=== PATIENT | male | born 1970 | race Caucasian/White ===

== ENCOUNTER 2025-08-27 08:16 | Inpatient (IN) ==
[~2025-08-27 08:16] MED LIST: ETOMIDATE 2 MG/ML 20 ML VIAL IV ONE; MIDAZOLAM HCL 5 MG/ML 2ML VIAL IV ONE; ROCURONIUM BROMIDE 10 MG/ML 5 ML VIAL IV ONE
--- NOTE | 2025-08-27 08:46 | Emergency Department Note ---
Impression & Plan Acetaminophen overdose, Unresponsive episode, Acidosis ED Provider Note HISTORY OF PRESENT ILLNESS: Patient is a 55-year-old male presenting after an overdose. Patient presents from [facility]. Patient reportedly had nausea and vomiting throughout the night last night per report from EMS. Patient reportedly did not show up for rounds this morning and he was found laying in his bed unresponsive at 07:15. He was given 2 rounds of Narcan per report, but they did not know how much Narcan or the route of administration. He started to become agitated after Narcan dosing. Guards report it is unclear what the patient could have overdosed on, but do state that K2, Suboxone and alcohol are currently "going around the intermediate." On arrival to the ER, patient does not participate in examination. Guard presents to bedside to supply more history after initial history taking. Reports that the patient received a total of 2 mg of intranasal Narcan at the intermediate before EMS arrived. ROS: as above PHYSICAL EXAM: Constitutional: Patient appears in no acute distress. HENT: Head: Normocephalic and atraumatic. Eyes: Pinpoint pupils, but reactive. Mouth/Throat: Mucous membranes moist. Neck: Trachea midline. Neck supple. Cardiovascular: RRR, No murmurs, rubs or gallops. Intact distal pulses. Pulmonary/Chest: No respiratory distress. Breath sounds clear and equal bilaterally. No wheezes or rales. Abdominal: Abdomen soft, no tenderness, rebound or guarding. Musculoskeletal: No edema, tenderness or deformity noted. Skin: Warm and dry. No rash, erythema, pallor or cyanosis Neurological: Patient is laying in bed not following any commands. Minimal response to painful jaw thrust stimuli. MDM: - Vitals signs showed tachycardia - History obtained via EMS, given patient's altered mental status. History as above. - Chronic conditions affecting care: unknown - Differential diagnoses include, but are not limited to: Alcohol intoxication; drug intoxication; acetaminophen toxicity; salicylate toxicity; intracranial hemorrhage; CVA; dysrhythmia - Order placed for continuous cardiac monitoring. At this time, monitor showed rate of 92 bpm with normal sinus rhythm, per my interpretation. - External medical records reviewed. - EKG image interpreted by myself showed normal sinus rhythm. Rate 95 bpm. QT 366. No acute ischemic changes. - Laboratory workup interpreted by myself showed normal WBC; normal PT/INR; stable electrolytes; low bicarb (16); elevated anion gap (19); normal CK; normal troponin; normal AST/ALT; negative salicylate; negative alcohol; elevated acetaminophen level (443) - CXR image reviewed interpreted by myself as any for pneumonia, per my interpretation. - VBG shows acidosis with a pH of 7.25 - NAC therapy ordered - CT head wo contrast negative for acute intracranial pathology. Noted to have a posterior scalp contusion. - Patient started vomiting in ER and was given 4 mg IV zofran. - Given 0.2 mg IV narcan on arrival and started to moan at nursing staff. On reassessment at 09:35, patient is having sonorous respirations and still has pinpoint pupils. An additional 0.4 mg of IV Narcan was ordered. - Given elevated tylenol level and normal AST/ALT - likely an acute tylenol overdose. NAC ordered. - I called the [facility] at 9:57 AM. They report that given patient's Tylenol level of greater than 300 ug/mL, he should be given fomepizole per their protocol. Report that the patient did receive 15 mg/kg now and then 10 mg/kg every 12 hours for a total of 4 doses of fomepizole. They reports that they agree with patient receiving N-acetylcysteine therapies. Report that the patient should have LFTs and PT/INR checked 12 hours into his NAC therapy. Reports that otherwise just do symptomatic care and states that benzos can be used if patient comes agitated or tachycardic. - Fomepazole 15 mg/kg ordered. - Discussed case with ICU medical bill processor, Dr. Montes De Oca, at 10:41. She reports she will be by to see patient. - Discussion was had with therapeutic case manager about patient's case and need for admission - Hospitalist consulted for admission - Patient admitted to [facility] service for further evaluation and management. I have personally spent 76 minutes of critical care time in the direct management of this patient. This includes bedside care, interpretation of diagnostic studies, and testing, discussion with consultants, patient, and family members, and other required patient management activities. This 76 minutes is in excess of all separately billable procedures. ASSESSMENT AND PLAN: Diagnosis: Unresponsive episode; acute acetaminophen overdose; acidosis Plan: Admit Past Med/Surg History Problem List (Updated 08/27/25 @ 11:16 by Kathleen Grullon MD) Acidosis (Acute) Unresponsive episode (Acute) Acetaminophen overdose (Acute) Social History Smoking Status: Unknown if ever smoked Preferred Language: Persian Feels Safe at Home: Yes Allergies Allergies Allergy/AdvReac Type Severity Reaction Status Date / Time Sulfa (Sulfonamide Allergy Unknown Verified 08/27/25 10:59 Antibiotics) Home Meds Home Medications Medication Instructions Recorded Confirmed albuterol sulfate 90 mcg/actuation 1 inh inhalation TID PRN Shortness 08/27/25 08/27/25 aerosol inhaler Of Breath Results & Data (ED) Vital Signs Vital Signs - 24 hr 08/27/25 08:23 08/27/25 08:23 08/27/25 08:23 Temperature Temperature Source Pulse Rate Pulse Rate from SpO2 Sensor Respiratory Rate Blood Pressure 104/80 104/80 104/80 Blood Pressure Mean 81 81 81 Pulse Oximetry Oxygen Delivery Method Sepsis Recent Fever Within 48 Hours Sepsis New/Unexplained Change in Mental Status Sepsis Action Taken by Nursing 08/27/25 08:26 08/27/25 08:28 08/27/25 08:32 Temperature Temperature Source Pulse Rate 92 H 91 H 94 H Pulse Rate from SpO2 Sensor Respiratory Rate 20 23 Blood Pressure Blood Pressure Mean Pulse Oximetry 93 97 Oxygen Delivery Method Sepsis Recent Fever Within 48 Hours Sepsis New/Unexplained Change in Mental Status Sepsis Action Taken by Nursing 08/27/25 08:33 08/27/25 08:33 08/27/25 08:33 Temperature 36.6 C Temperature Source Temporal Artery Scan Pulse Rate 103 H Pulse Rate from SpO2 Sensor Respiratory Rate 17 Blood Pressure 123/76 116/69 116/69 Blood Pressure Mean 91 90 90 Pulse Oximetry 97 Oxygen Delivery Method Room Air Sepsis Recent Fever Within 48 Hours No Sepsis New/Unexplained Change in Mental Status N/A Sepsis Action Taken by Nursing No Action Required 08/27/25 08:33 08/27/25 08:33 08/27/25 08:33 Temperature Temperature Source Pulse Rate Pulse Rate from SpO2 Sensor Respiratory Rate Blood Pressure 116/69 116/69 116/69 Blood Pressure Mean 90 90 90 Pulse Oximetry Oxygen Delivery Method Sepsis Recent Fever Within 48 Hours Sepsis New/Unexplained Change in Mental Status Sepsis Action Taken by Nursing 08/27/25 08:41 08/27/25 08:44 08/27/25 08:45 Temperature Temperature Source Pulse Rate 85 105 H Pulse Rate from SpO2 Sensor Respiratory Rate 22 22 Blood Pressure 123/74 Blood Pressure Mean 95 Pulse Oximetry 95 98 Oxygen Delivery Method Sepsis Recent Fever Within 48 Hours Sepsis New/Unexplained Change in Mental Status Sepsis Action Taken by Nursing 08/27/25 08:45 08/27/25 08:45 08/27/25 08:45 Temperature Temperature Source Pulse Rate Pulse Rate from SpO2 Sensor Respiratory Rate Blood Pressure 123/74 123/74 123/74 Blood Pressure Mean 95 95 95 Pulse Oximetry Oxygen Delivery Method Sepsis Recent Fever Within 48 Hours Sepsis New/Unexplained Change in Mental Status Sepsis Action Taken by Nursing 08/27/25 08:45 08/27/25 08:50 08/27/25 08:52 Temperature Temperature Source Pulse Rate 90 Pulse Rate from SpO2 Sensor Respiratory Rate 19 Blood Pressure 123/74 Blood Pressure Mean 95 Pulse Oximetry 98 98 Oxygen Delivery Method Room Air Sepsis Recent Fever Within 48 Hours Sepsis New/Unexplained Change in Mental Status Sepsis Action Taken by Nursing 08/27/25 08:59 08/27/25 09:00 08/27/25 09:00 Temperature Temperature Source Pulse Rate 99 H Pulse Rate from SpO2 Sensor Respiratory Rate 20 Blood Pressure 129/81 129/81 Blood Pressure Mean 93 93 Pulse Oximetry 97 Oxygen Delivery Method Sepsis Recent Fever Within 48 Hours Sepsis New/Unexplained Change in Mental Status Sepsis Action Taken by Nursing 08/27/25 09:00 08/27/25 09:00 08/27/25 09:00 Temperature Temperature Source Pulse Rate Pulse Rate from SpO2 Sensor Respiratory Rate Blood Pressure 129/81 129/81 129/81 Blood Pressure Mean 93 93 93 Pulse Oximetry Oxygen Delivery Method Sepsis Recent Fever Within 48 Hours Sepsis New/Unexplained Change in Mental Status Sepsis Action Taken by Nursing 08/27/25 09:02 08/27/25 09:11 08/27/25 09:25 Temperature Temperature Source Pulse Rate 91 H 103 H Pulse Rate from SpO2 Sensor Respiratory Rate 21 16 Blood Pressure 125/72 Blood Pressure Mean 96 Pulse Oximetry 96 97 Oxygen Delivery Method Sepsis Recent Fever Within 48 Hours Sepsis New/Unexplained Change in Mental Status Sepsis Action Taken by Nursing 08/27/25 09:25 08/27/25 09:25 08/27/25 09:25 Temperature Temperature Source Pulse Rate Pulse Rate from SpO2 Sensor Respiratory Rate Blood Pressure 125/72 125/72 125/72 Blood Pressure Mean 96 96 96 Pulse Oximetry Oxygen Delivery Method Sepsis Recent Fever Within 48 Hours Sepsis New/Unexplained Change in Mental Status Sepsis Action Taken by Nursing 08/27/25 09:25 08/27/25 09:26 08/27/25 09:28 Temperature Temperature Source Pulse Rate 96 H Pulse Rate from SpO2 Sensor Respiratory Rate 23 Blood Pressure 125/72 Blood Pressure Mean 96 Pulse Oximetry 97 98 Oxygen Delivery Method Room Air Sepsis Recent Fever Within 48 Hours Sepsis New/Unexplained Change in Mental Status Sepsis Action Taken by Nursing 08/27/25 09:29 08/27/25 09:31 08/27/25 09:31 Temperature Temperature Source Pulse Rate 97 H Pulse Rate from SpO2 Sensor Respiratory Rate 21 Blood Pressure 113/70 113/70 Blood Pressure Mean 80 80 Pulse Oximetry 98 Oxygen Delivery Method Sepsis Recent Fever Within 48 Hours Sepsis New/Unexplained Change in Mental Status Sepsis Action Taken by Nursing 08/27/25 09:31 08/27/25 09:31 08/27/25 09:31 Temperature Temperature Source Pulse Rate Pulse Rate from SpO2 Sensor Respiratory Rate Blood Pressure 113/70 113/70 113/70 Blood Pressure Mean 80 80 80 Pulse Oximetry Oxygen Delivery Method Sepsis Recent Fever Within 48 Hours Sepsis New/Unexplained Change in Mental Status Sepsis Action Taken by Nursing 08/27/25 09:32 08/27/25 09:42 08/27/25 09:45 Temperature Temperature Source Pulse Rate 92 H 96 H 114 H Pulse Rate from SpO2 Sensor Respiratory Rate 20 18 23 Blood Pressure Blood Pressure Mean Pulse Oximetry 98 95 97 Oxygen Delivery Method Sepsis Recent Fever Within 48 Hours Sepsis New/Unexplained Change in Mental Status Sepsis Action Taken by Nursing 08/27/25 09:46 08/27/25 09:46 08/27/25 09:46 Temperature Temperature Source Pulse Rate Pulse Rate from SpO2 Sensor Respiratory Rate Blood Pressure 158/80 H 158/80 H 158/80 H Blood Pressure Mean 99 99 99 Pulse Oximetry Oxygen Delivery Method Sepsis Recent Fever Within 48 Hours Sepsis New/Unexplained Change in Mental Status Sepsis Action Taken by Nursing 08/27/25 09:46 08/27/25 09:46 08/27/25 09:51 Temperature Temperature Source Pulse Rate Pulse Rate from SpO2 Sensor Respiratory Rate 18 Blood Pressure 158/80 H 158/80 H Blood Pressure Mean 99 99 Pulse Oximetry 98 Oxygen Delivery Method Sepsis Recent Fever Within 48 Hours Sepsis New/Unexplained Change in Mental Status Sepsis Action Taken by Nursing 08/27/25 10:00 08/27/25 10:01 08/27/25 10:01 Temperature Temperature Source Pulse Rate 85 Pulse Rate from SpO2 Sensor Respiratory Rate 15 Blood Pressure 139/62 139/62 Blood Pressure Mean 78 78 Pulse Oximetry 96 Oxygen Delivery Method Sepsis Recent Fever Within 48 Hours Sepsis New/Unexplained Change in Mental Status Sepsis Action Taken by Nursing 08/27/25 10:01 08/27/25 10:01 08/27/25 10:01 Temperature Temperature Source Pulse Rate Pulse Rate from SpO2 Sensor Respiratory Rate Blood Pressure 139/62 139/62 139/62 Blood Pressure Mean 78 78 78 Pulse Oximetry Oxygen Delivery Method Sepsis Recent Fever Within 48 Hours Sepsis New/Unexplained Change in Mental Status Sepsis Action Taken by Nursing 08/27/25 10:12 08/27/25 10:15 08/27/25 10:15 Temperature Temperature Source Pulse Rate Pulse Rate from SpO2 Sensor 112 H Respiratory Rate 13 Blood Pressure 139/101 H 139/101 H Blood Pressure Mean 118 118 Pulse Oximetry 98 Oxygen Delivery Method Sepsis Recent Fever Within 48 Hours Sepsis New/Unexplained Change in Mental Status Sepsis Action Taken by Nursing 08/27/25 10:15 08/27/25 10:15 08/27/25 10:15 Temperature Temperature Source Pulse Rate Pulse Rate from SpO2 Sensor Respiratory Rate Blood Pressure 139/101 H 139/101 H 139/101 H Blood Pressure Mean 118 118 118 Pulse Oximetry Oxygen Delivery Method Sepsis Recent Fever Within 48 Hours Sepsis New/Unexplained Change in Mental Status Sepsis Action Taken by Nursing 08/27/25 10:15 08/27/25 10:21 08/27/25 10:27 Temperature Temperature Source Pulse Rate 108 H 98 H 95 H Pulse Rate from SpO2 Sensor 91 H Respiratory Rate 23 22 20 Blood Pressure Blood Pressure Mean Pulse Oximetry 97 97 96 Oxygen Delivery Method Sepsis Recent Fever Within 48 Hours Sepsis New/Unexplained Change in Mental Status Sepsis Action Taken by Nursing 08/27/25 10:29 08/27/25 10:30 08/27/25 10:30 Temperature Temperature Source Pulse Rate 110 H Pulse Rate from SpO2 Sensor 109 H Respiratory Rate 27 H Blood Pressure 144/87 H 139/91 Blood Pressure Mean 114 115 Pulse Oximetry 98 Oxygen Delivery Method Sepsis Recent Fever Within 48 Hours Sepsis New/Unexplained Change in Mental Status Sepsis Action Taken by Nursing 08/27/25 10:30 08/27/25 10:30 08/27/25 10:30 Temperature Temperature Source Pulse Rate Pulse Rate from SpO2 Sensor Respiratory Rate Blood Pressure 139/91 139/91 139/91 Blood Pressure Mean 115 115 115 Pulse Oximetry Oxygen Delivery Method Sepsis Recent Fever Within 48 Hours Sepsis New/Unexplained Change in Mental Status Sepsis Action Taken by Nursing 08/27/25 10:30 08/27/25 10:42 08/27/25 10:45 Temperature Temperature Source Pulse Rate 107 H 97 H Pulse Rate from SpO2 Sensor Respiratory Rate 22 19 Blood Pressure 139/91 Blood Pressure Mean 115 Pulse Oximetry 97 98 Oxygen Delivery Method Sepsis Recent Fever Within 48 Hours Sepsis New/Unexplained Change in Mental Status Sepsis Action Taken by Nursing 08/27/25 10:45 08/27/25 10:45 08/27/25 10:45 Temperature Temperature Source Pulse Rate Pulse Rate from SpO2 Sensor Respiratory Rate Blood Pressure 150/82 H 150/82 H 150/82 H Blood Pressure Mean 104 104 104 Pulse Oximetry Oxygen Delivery Method Sepsis Recent Fever Within 48 Hours Sepsis New/Unexplained Change in Mental Status Sepsis Action Taken by Nursing 08/27/25 10:45 08/27/25 10:45 08/27/25 10:51 Temperature Temperature Source Pulse Rate 86 Pulse Rate from SpO2 Sensor 87 Respiratory Rate 16 Blood Pressure 150/82 H 150/82 H Blood Pressure Mean 104 104 Pulse Oximetry 96 Oxygen Delivery Method Sepsis Recent Fever Within 48 Hours Sepsis New/Unexplained Change in Mental Status Sepsis Action Taken by Nursing Laboratory Data 08/27/25 08:34 08/27/25 08:34 Lab Results 08/27/25 08/27/25 08/27/25 Range/Units 08:34 09:32 10:26 WBC 9.89 (4.8-10.8) K/ul RBC 4.90 (4.70-6.10) M/uL Hgb 14.5 (14.0-18.0) g/dl Hct 43.6 (42.0-52.0) % MCV 89.0 (80.0-100.0) fL MCH 29.6 (25.0-34.0) pg MCHC 33.3 (32.0-36.0) g/dL RDW Std Deviation 42.1 (36.4-46.3) fL RDW Coeff of Brett 12.9 (11.5-14.5) % Plt Count 240 (130-400) K/uL MPV 10.3 (9.4-12.4) fL Immature Gran % (Auto) 0.9 % Neut % (Auto) 89.0 % Lymph % (Auto) 5.5 % Jones % (Auto) 4.3 % Eos % (Auto) 0.1 % Baso % (Auto) 0.2 % Neut # (Auto) 8.80 H (1.40-6.50) K/uL Lymph # (Auto) 0.54 L (1.20-3.40) K/uL Jones # (Auto) 0.43 (0.11-0.59) K/uL Eos # (Auto) 0.01 (0.00-0.50) K/uL Baso # (Auto) 0.02 (0.00-0.20) K/uL Immature Gran # (Auto) 0.09 (0.01-0.20) K/uL PT 11.4 (9.0-12.0) Seconds INR 1.1 (0.9-1.1) VBG pH 7.25 L (7.36-7.41) VBG pCO2 30 L (38-50) mmHg VBG pO2 69 mmHg VBG HCO3 13 mmol/L VBG O2 Saturation 95.9 % VBG Base Excess -12.6 mEq/L Sodium 137 (136-145) mmol/L Potassium 3.5 (3.5-5.1) mmol/L Chloride 102 (98-107) mmol/L Carbon Dioxide 16 L (21-32) mmol/L Anion Gap 19 H (3-11) BUN 22 (6-23) mg/dl Creatinine 1.10 (0.6-1.4) mg/dl Est Cr Clr Drug Dosing Not Reportable eGFR 79.28 BUN/Creatinine Ratio 20.0 (10-20) Glucose 160 H (70-99(Fasting)) mg/dl POC Glucose 136 H (70-99) mg/dl Calcium 9.1 (8.6-10.3) mg/dl Magnesium 2.0 (1.7-2.4) mg/dl Total Bilirubin 0.3 (0.2-1.0) mg/dl AST 24 (13-39) U/L ALT 20 (7-52) U/L Alkaline Phosphatase 75 (34-104) U/L Total Creatine Kinase 62 (30-223) U/L Troponin I High Sens 5.2 (0-20) pg/ml Total Protein 7.3 (6.0-8.3) gm/dl Albumin 4.4 (3.4-5.0) gm/dl Globulin 2.9 (2.5-4.0) gm/dl Albumin/Globulin Ratio 1.5 (0.9-2) Salicylates < 3.0 L (3.0-30) mg/dl Acetaminophen 443 H* (10-30) ug/ml Ethyl Alcohol mg/dL < 10.0 (<10.0) mg/dl Administered Medications Discontinued Medications Acetylcysteine (Acetylcysteine Iv 21 Hr Regimen (>40kg)) 1 each IV NOW STA; Protocol Stop: 08/27/25 09:38 Last Admin: 08/27/25 10:30 Dose: Not Given Documented By: ML Acetylcysteine 14,420 mg/ (Dextrose) 272.1 mls @ 200 mls/hr IV ONCE ONE; Protocol Stop: 08/27/25 10:58 Last Admin: 08/27/25 10:29 Dose: 200 mls/hr Documented By: ML Naloxone HCl (Naloxone Hcl 0.4 Mg/1 Ml Vial/Carp) 0.2 mg IV NOW STA Stop: 08/27/25 08:43 Last Admin: 08/27/25 09:05 Dose: 0.2 mg Documented By: ML Naloxone HCl (Naloxone Hcl 0.4 Mg/1 Ml Vial/Carp) 0.4 mg IV NOW STA Stop: 08/27/25 09:39 Last Admin: 08/27/25 10:29 Dose: 0.4 mg Documented By: ML Ondansetron HCl (Ondansetron Inj 2 Mg/Ml 2 Ml Vial) 4 mg IV NOW STA Stop: 08/27/25 09:02 Last Admin: 08/27/25 09:05 Dose: 4 mg Documented By: ML Ondansetron HCl (Ondansetron Inj 2 Mg/Ml 2 Ml Vial) Confirm Administered Dose 4 mg .ROUTE .STK-MED ONE Stop: 08/27/25 09:02 Last Admin: 08/27/25 09:05 Dose: Not Given Documented By: FLOR Imaging Data Radiologist's Impression: Chest X-Ray 08/27/25 08:43 XR chest 1V portable CLINICAL HISTORY: found down COMPARISON STUDY: None FINDINGS: Heart size and pulmonary vasculature are normal. Inspiration is shallow. No consolidation or pleural effusion seen. No pneumothorax. IMPRESSION: No acute findings. ACT 112: Negative or not required by law. Electronically signed by: Camilo Chicas M.D. 08/27/2025 10:[address] 08/27/25 08:43 CT SCAN OF THE BRAIN WITHOUT IV CONTRAST CLINICAL HISTORY: Change in mental status. "Found down". COMPARISON STUDY: No priors. TECHNIQUE: Unenhanced CT scan of the brain is performed from the vertex to the skull base. Images are reviewed in the axial, sagittal, and coronal planes. A dose lowering technique was utilized adhering to the principles of ALARA. CT DOSE: 750.68 mGy.cm FINDINGS: Brain parenchyma: The brain parenchyma is normal in appearance. There is no hemorrhage, mass effect, or evidence of acute territorial ischemia by CT criteria. Garcia-white matter differentiation is preserved. No extra-axial fluid collection is seen. Ventricles, sulci, cisterns: Normal in configuration. Intracranial vasculature: There is mild atherosclerotic calcification of the cavernous carotid arteries. Calvarium: No depressed calvarial fractures seen. Soft tissue: There is a posterior scalp contusion. Sinuses and mastoids: There is moderate mucosal thickening within the ethmoid sinuses. Mild mucosal thickening is seen in the frontal and left maxillary sinuses. The mastoid air cells are well pneumatized. Orbits: The bony orbits are grossly intact. IMPRESSION: 1. There is no hemorrhage, mass effect, or evidence of acute territorial ischemia by CT criteria. 2. Posterior scalp contusion. ACT 112: Negative or not required by law. Electronically signed by: Terence Villalobos M.D. 08/27/2025 9:32 AM Discharge Plan Visit Data Chief Complaint: Overdose (Intentional) Stated Complaint: OVERDOSE ED Provider: Kathleen Grullon Discharge Problem: Acetaminophen overdose, Unresponsive episode, Acidosis Patient Disposition: Admitted As Inpatient Condition: Critical Forms Stand Alone Forms: [facility] tritrue, Suicide Prevention Resources Prescriptions Prescriptions: No Action albuterol sulfate 90 mcg/actuation Hfa Aerosol Inhaler 1 inh INHALATION TID PRN (Reason: Shortness Of Breath) Referrals Referrals: PCP,NO [Physician] -
[2025-08-27] MEDS: ONDANSETRON INJ 2 MG/ML 2 ML VIAL IV STA (09:05)
[2025-08-27] MEDS: NALOXONE HCL 0.4 MG/1 ML VIAL/CARP IV STA ×2 (09:05→10:29)
[2025-08-27] MEDS: ONDANSETRON INJ 2 MG/ML 2 ML VIAL ONE (09:05)
[2025-08-27 09:11] LABS: Hematocrit (blood only) 43.6 % (42.0-52.0); Hemoglobin 14.5 g/dl (14.0-18.0); Immature Granulocytes # (auto) 0.09 K/uL (0.01-0.20); Immature Granulocytes % (auto) 0.9 %; Mean Corpuscular Hemoglobin 29.6 pg (25.0-34.0); Mean Corpuscular Volume 89.0 fL (80.0-100.0); Platelet Count 240 K/uL (130-400); RDW Standard Deviation 42.1 fL (36.4-46.3); Red Blood Count 4.90 M/uL (4.70-6.10); White Blood Count 9.89 K/ul (4.8-10.8)
[2025-08-27 09:15] LABS: Salicylate < 3.0 mg/dl (3.0-30)
[2025-08-27 09:30] LABS: Alanine Aminotransferase 20 U/L (7-52); Albumin Globulin Ratio 1.5 (0.9-2); Albumin Level 4.4 gm/dl (3.4-5.0); Alkaline Phosphatase 75 U/L (34-104); Anion Gap 19 (3-11); Bilirubin,Total 0.3 mg/dl (0.2-1.0); Blood Urea Nitrogen 22 mg/dl (6-23); Calcium 9.1 mg/dl (8.6-10.3); Carbon Dioxide 16 mmol/L (21-32); Chloride 102 mmol/L (98-107); Creatine Kinase 62 U/L (30-223); Globulin 2.9 gm/dl (2.5-4.0); Glucose 160 mg/dl (70-99(Fasting)); Magnesium 2.0 mg/dl (1.7-2.4); Potassium 3.5 mmol/L (3.5-5.1); Sodium 137 mmol/L (136-145); Total Protein 7.3 gm/dl (6.0-8.3)
[2025-08-27 09:32] LABS: Acetaminophen 443 ug/ml (10-30)
--- NOTE | 2025-08-27 09:33 | CT Scan Report ---
CT SCAN OF THE BRAIN WITHOUT IV CONTRAST CLINICAL HISTORY: Change in mental status. "Found down". COMPARISON STUDY: No priors. TECHNIQUE: Unenhanced CT scan of the brain is performed from the vertex to the skull base. Images are reviewed in the axial, sagittal, and coronal planes. A dose lowering technique was utilized adherin g to the principles of ALARA. CT DOSE: 750.68 mGy.cm FINDINGS: Brain parenchyma: The brain parenchyma is normal in appearance. There is no hemorrhage, mass effect, or evidence of acute territorial ischemia by CT criteria. Garcia-white matter differentiation is preser herbert. No extra-axial fluid collection is seen. Ventricles, sulci, cisterns: Normal in configuration. Intracranial vasculature: There is mild atherosclerotic calcification of the cavernous carotid arteri es. Calvarium: No depressed calvarial fractures seen. Soft tissue: There is a posterior scalp contusion. Sinuses and mastoids: There is moderate mucosal thickening within the ethmoid sinuses. Mild mucosal t hickening is seen in the frontal and left maxillary sinuses. The mastoid air cells are well pneumatiz ed. Orbits: The bony orbits are grossly intact. IMPRESSION: 1. There is no hemorrhage, mass effect, or evidence of acute territorial ischemia by CT criteria. 2. Posterior scalp contusion. ACT 112: Negative or not required by law. Electronically signed by: Terence Villalobos M.D. 08/27/2025 9:32 AM
[2025-08-27 09:40] LABS: INR 1.1 (0.9-1.1); Prothrombin Time 11.4 Seconds (9.0-12.0)
[2025-08-27] MEDS ORDERED: FOMEPIZOLE 1,500MG/1.5ML VIAL IV STA (10:05)
--- NOTE | 2025-08-27 10:23 | XRay Report ---
XR chest 1V portable CLINICAL HISTORY: found down COMPARISON STUDY: None FINDINGS: Heart size and pulmonary vasculature are normal. Inspiration is shallow. No consolidation o r pleural effusion seen. No pneumothorax. IMPRESSION: No acute findings. ACT 112: Negative or not required by law. Electronically signed by: Camilo Chicas M.D. 08/27/2025 10:22 AM
[2025-08-27] MEDS: AcetylCYSTEINE IV 21 HR REGIMEN (>40KG) IV STA (10:30)
[2025-08-27 10:49] LABS: Base Excess VBG -12.6 mEq/L; HCO3 VBG 13 mmol/L; Oxygen Saturation VBG 95.9 %; PCO2 VBG 30 mmHg (38-50); PO2 VBG 69 mmHg; pH VBG 7.25 (7.36-7.41)
--- NOTE | 2025-08-27 10:51 | History & Physical Report ---
Date of Service August 27, 2025 Assessment & Plan (1) Unresponsive episode: (2) Metabolic acidosis: (3) Acetaminophen overdose: (4) Seizure-like activity: Plan This patient is a 55-year-old male prisoner with a history of asthma and chronic pain syndrome on ibuprofen only, who presents after being found unresponsive in his skilled nursing cell around 7:30 AM. It was noted that he had had some nausea and vomiting through the night and when he did not show for morning muster, he was found to be unresponsive. There was a suspicion for overdose although no paraphernalia or medication bottles were found with his belongings. He was administered Narcan x 2 at the skilled nursing with only brief improvement. Apparently there is ketamine, "hooch" (homemade alcohol), and Suboxone being illicitly circulated at the skilled nursing. The patient was obtunded when I saw him. He was having a tremor all over and then did have some significant myoclonus of the entire lower half of his body versus tonic-clonic seizure briefly. He was found to be acidotic with a VBG pH of 7.25, CO2 30, serum bicarbonate 16 with an anion gap of 19 with elevated lactate, elevated APAP level at 443, negative EtOH level, with normal renal and hepatic function, normal TSH, and normal vital signs. Poison control center was contacted who recommended fomepizole and N- acetylcysteine which were started in the ED. I consulted with the alteration hand who recommended intubation for airway protection in case of vomiting as the patient had vomited in the ED while obtunded. He will be admitted to the ICU for toxic ingestion, metabolic acidosis, and possible seizure activity. #Unresponsive episode/toxic ingestion/metabolic acidosis-likely secondary to toxic ingestion. With lactic acidosis, serum osmolality normal to somewhat elevated but osmole gap normal. Urine drug screen negative, EtOH level negative, but APAP level elevated and with metabolic acidosis with anion gap. There has been reported use of homemade alcohol which could include methanol and ethylene glycol as well as ketamine reported in the skilled nursing. With nausea/vomiting and patient being obtunded, intubated in the ED by alteration hand for airway protection. With myoclonus versus seizure activity could be secondary to toxic ingestion. CT head negative except for posterior scalp contusion which could have been from a fall when intoxicated. Do not suspect meningitis or encephalitis as he is afebrile and no other signs of infection. - Admit to ICU - Ventilator management as per alteration hand - Start IV fluids, treating with fomepizole and N-acetylcysteine - Plan to keep in contact with poison control center - Follow serial CMP, serum osmolality, VBG pH, lactate - Check methanol level and ethylene glycol level which are reference labs/send out #Acetaminophen overdose-acetaminophen level quite elevated at 443. The patient does have access to [id number] Tylenol as per the skilled nursing guards. LFTs are normal, INR is normal thus far. - Start NAC treatment - Follow LFTs, PT/INR, APAP level in 12 hours #Seizure-like activity/myoclonus-with witnessed significant tonic clonic brief movements by both myself and the alteration hand but only when his lower extremities were touched. Could be seizure activity given overdose - Check stat EEG - Give benzos as needed #Mild intermittent asthma-no acute issues, no wheezing and normal pulse ox - Can use albuterol as needed DVT prophylaxis-SCDs Disposition-admit to ICU History of Present Illness Chief Complaint: Unresponsive Primary Care Provider: NO PCP This patient is a 55-year-old male prisoner with a history of asthma and chronic pain syndrome on ibuprofen only, who presents after being found unresponsive in his skilled nursing cell around 7:30 AM. It was noted that he had had some nausea and vomiting through the night and when he did not show for morning muster, he was found to be unresponsive. There was a suspicion for overdose although no paraphernalia or medication bottles were found with his belongings. He was administered Narcan x 2 at the skilled nursing with only brief improvement. Apparently there is ketamine, "hooch" (homemade alcohol), and Suboxone being illicitly circulated at the skilled nursing. The patient was obtunded when I saw him. He was having a tremor all over and then did have some significant myoclonus of the entire lower half of his body versus tonic-clonic seizure briefly. He was found to be acidotic with a VBG pH of 7.25, CO2 30, serum bicarbonate 16 with an anion gap of 19 with elevated lactate, elevated APAP level at 443, negative EtOH level, with normal renal and hepatic function, normal TSH, and normal vital signs. Poison control center was contacted who recommended fomepizole and N- acetylcysteine which were started in the ED. I consulted with the alteration hand who recommended intubation for airway protection in case of vomiting as the patient had vomited in the ED while obtunded. He will be admitted to the ICU for toxic ingestion, metabolic acidosis, and possible seizure activity. Allergies Allergy/AdvReac Type Severity Reaction Status Date / Time Sulfa (Sulfonamide Allergy Unknown Verified 08/27/25 10:59 Antibiotics) Home Medications Medication Instructions Recorded Confirmed Type albuterol sulfate 90 mcg/actuation 1 inh inhalation TID PRN Shortness 08/27/25 08/27/25 History aerosol inhaler Of Breath Past Med/Surg History Problem List (Updated 08/27/25 @ 20:19 by Judith Ralph MD) Seizure-like activity Metabolic acidosis AMS (altered mental status) Acidosis (Acute) Unresponsive episode (Acute) Acetaminophen overdose (Acute) Medical History (Updated 08/27/25 @ 20:19 by Judith Ralph MD) Chronic pain syndrome Asthma Family History (Updated 08/27/25 @ 20:19 by Judith Ralph MD) Other Family history non-contributory Social History Smoking Status: Unknown if ever smoked Hx Alcohol Use: No (Rafita LAZARO) Hx Substance Use: No (unknown: intubated) Preferred Language: Amharic Electric Switch Tester Required: No Beliefs That Will Affect Care: None Current Living Situation: Other Current Living Situation Comment: Rafita LAZARO Feels Safe at Home: Yes Review of Systems Review of Systems: Unobtainable due to cognitive status Physical Exam Constitutional: WD/WN, vitals as above Eyes: + anicteric sclerae and PERRL; no anisoc oria and no nystagmus Respiratory: normal respiratory effort, lungs clear to auscultation Cardiovascular: RRR, no murmur, no edema Gastrointestinal (Abdomen): normal bowel sounds, soft, nontender, no hepatosplenomegaly Skin: no rashes, warm and dry Neurologic: + obtunded Motor/Sensory: + tremor (F ine resting tremor entire body) With significant tonic clonic movement of bilateral lower extremities when feet are touched Psychiatric: Orientation: + not alert and + not oriented x 3 Genitourinary: no testicular masses, no penis abnormality (With Perez catheter in place) Results & Data Results & Data Vital Signs (Past 12 Hours) Vital Signs Temp Pulse Resp BP Pulse Ox O2 Del Method 08/27/25 10:21 98 H 22 97 08/27/25 10:15 108 H 23 97 08/27/25 10:15 139/101 H 08/27/25 10:15 139/101 H 08/27/25 10:15 139/101 H 08/27/25 10:15 139/101 H 08/27/25 10:15 139/101 H 08/27/25 10:12 13 98 08/27/25 10:01 139/62 08/27/25 10:01 139/62 08/27/25 10:01 139/62 08/27/25 10:01 139/62 08/27/25 10:01 139/62 08/27/25 10:00 85 15 96 08/27/25 09:51 18 98 08/27/25 09:46 158/80 H 08/27/25 09:46 158/80 H 08/27/25 09:46 158/80 H 08/27/25 09:46 158/80 H 08/27/25 09:46 158/80 H 08/27/25 09:45 114 H 23 97 08/27/25 09:42 96 H 18 95 08/27/25 09:32 92 H 20 98 08/27/25 09:31 113/70 08/27/25 09:31 113/70 08/27/25 09:31 113/70 08/27/25 09:31 113/70 08/27/25 09:31 113/70 08/27/25 09:29 97 H 21 98 08/27/25 09:28 98 Room Air 08/27/25 09:26 96 H 23 97 08/27/25 09:25 125/72 08/27/25 09:25 125/72 08/27/25 09:25 125/72 08/27/25 09:25 125/72 08/27/25 09:25 125/72 08/27/25 09:11 103 H 16 97 08/27/25 09:02 91 H 21 96 08/27/25 09:00 129/81 08/27/25 09:00 129/81 08/27/25 09:00 129/81 08/27/25 09:00 129/81 08/27/25 09:00 129/81 08/27/25 08:59 99 H 20 97 08/27/25 08:52 98 Room Air 08/27/25 08:50 90 19 98 08/27/25 08:45 123/74 08/27/25 08:45 123/74 08/27/25 08:45 123/74 08/27/25 08:45 123/74 08/27/25 08:45 123/74 08/27/25 08:44 105 H 22 98 08/27/25 08:41 85 22 95 08/27/25 08:33 116/69 08/27/25 08:33 116/69 08/27/25 08:33 116/69 08/27/25 08:33 116/69 08/27/25 08:33 116/69 08/27/25 08:33 36.6 C 103 H 17 123/76 97 Room Air 08/27/25 08:32 94 H 23 97 08/27/25 08:28 91 H 08/27/25 08:26 92 H 20 93 08/27/25 08:23 104/80 08/27/25 08:23 104/80 08/27/25 08:23 104/80 Laboratory Results CBC, CMP, PT/INR, VBG, lactate, serum osmolality, magnesium, troponin, TSH, prolactin, CK reviewed Diagnostic Findings Chest X-Ray 08/27/25 08:43 XR chest 1V portable CLINICAL HISTORY: found down COMPARISON STUDY: None FINDINGS: Heart size and pulmonary vasculature are normal. Inspiration is shallow. No consolidation or pleural effusion seen. No pneumothorax. IMPRESSION: No acute findings. ACT 112: Negative or not required by law. Electronically signed by: Camilo Chicas M.D. 08/27/2025 10:[address] 08/27/25 08:43 CT SCAN OF THE BRAIN WITHOUT IV CONTRAST CLINICAL HISTORY: Change in mental status. "Found down". COMPARISON STUDY: No priors. TECHNIQUE: Unenhanced CT scan of the brain is performed from the vertex to the skull base. Images are reviewed in the axial, sagittal, and coronal planes. A dose lowering technique was utilized adhering to the principles of ALARA. CT DOSE: 750.68 mGy.cm FINDINGS: Brain parenchyma: The brain parenchyma is normal in appearance. There is no hemorrhage, mass effect, or evidence of acute territorial ischemia by CT criteria. Garcia-white matter differentiation is preserved. No extra-axial fluid collection is seen. Ventricles, sulci, cisterns: Normal in configuration. Intracranial vasculature: There is mild atherosclerotic calcification of the cavernous carotid arteries. Calvarium: No depressed calvarial fractures seen. Soft tissue: There is a posterior scalp contusion. Sinuses and mastoids: There is moderate mucosal thickening within the ethmoid sinuses. Mild mucosal thickening is seen in the frontal and left maxillary sinuses. The mastoid air cells are well pneumatized. Orbits: The bony orbits are grossly intact. IMPRESSION: 1. There is no hemorrhage, mass effect, or evidence of acute territorial ischemia by CT criteria. 2. Posterior scalp contusion. ACT 112: Negative or not required by law. Electronically signed by: Terence Villalobos M.D. 08/27/2025 9:32 AM Chest X-Ray 08/27/25 13:47 XR chest 1V portable CLINICAL HISTORY: intubation COMPARISON STUDY: Earlier today. FINDINGS: Endotracheal tube tip is just below the thoracic inlet. Nasogastric tube tip is in the proximal stomach. Heart size and pulmonary vasculature are normal. No consolidation or pleural effusion seen. No pneumothorax. There is partially visualized gaseous distention of the transverse colon. IMPRESSION: Well-positioned endotracheal tube with well-aerated lungs. ACT 112: Negative or not required by law. Electronically signed by: Camilo Chicas M.D. 08/27/2025 2:04 PM ECG Additional Comments: ECG on 08/27/2025 at 8:32 AM with normal sinus rhythm, rate 95, QTc 459, no acute ischemic changes Code Status & VTE Plan Code Status Full code VTE Prophylaxis Plan VTE Prophylaxis will be ordered: Yes PG Care Time/CCT Total # of Minutes Spent Total Time Spent with Patient: Total time spent is greater than 50% in coordination of care (as documented) at patient's floor/unit and/or counseling patient: Coding Level of Care Code 71178 INT INP/OBS CARE 3/75MIN Diagnoses Unresponsive episode R40.4 Metabolic acidosis E87.20 Acetaminophen overdose T39.1X1A Seizure-like activity R56.9
[2025-08-27 12:30] LABS: Appearance Urine Clear (Clear); Bacteria Urine Automated None Seen (None Seen); Epithelial Cell Urine Auto 0-2 /hpf (0-2); Glucose Urine UA Negative (Negative); RBC Urine Automated >20 /hpf (0-2)
--- NOTE | 2025-08-27 12:46 | Electrocardiogram Report ---
Test Reason : Blood Pressure : */* mmHG Vent. Rate : 95 BPM Atrial Rate : 95 BPM P-R Int : 170 ms QRS Dur : 94 ms QT Int : 366 ms P-R-T Axes : 63 22 46 degrees QTcB Int : 459 ms Normal sinus rhythm Normal ECG No previous ECGs available Confirmed by Gui Diaz ([id number]) on 08/27/2025 12:46:22 PM Referred By: Confirmed By: Gui Diaz
[2025-08-27 12:49] LABS: Amphetamines+Metham, Urine Neg (Neg); MDMA (Ecstacy), Urine Neg (Neg); Marijuana, Urine Neg (Neg)
[2025-08-27] MEDS: LORazepam 1 MG/1 ML SYR ED Inj Use ONE (12:58)
[2025-08-27] MEDS: RAPID SEQUENCE INDUCTION BAG ONE (12:58)
[2025-08-27] MEDS: STAT IV/IM STA (12:58)
[2025-08-27] MEDS: PROPOFOL IV EMULSION 10 MG/ML 100 ML VIAL IV ONE ×2 (12:59→18:35)
[2025-08-27 13:01] LABS: Thyroid Stimulating Hormone 0.47 uIu/ml (0.300-4.500)
--- NOTE | 2025-08-27 13:47 | Procedure Note ---
Procedure Note Date of Service August 27, 2025 Procedure: Endotracheal intubation Indication: Altered mental status, airway protection Performer: Caren Montes De Oca MD Consent: Emergent procedure Anesthesia: RSI with 20 mg etomidate, 8 mg Versed, 50 mg rocuronium Procedure summary: GlideScope with S4 blade was used. Suction was available at bedside. [place] scope was introduced. Vocal cords were visualized without difficulty. No other abnormalities visualized. No significant secretions appreciated. Size 8.0 ET tube was advanced past the vocal cords, stylette was removed and cuff was inflated. ET tube was secured at 25 cm at the lip. Secured with tube willis. Location was confirmed with direct visualization of cord passage, fogging of the ET tube, CO2 colorimetric indicator and symmetric breath sounds. Oxygen saturation of 100% postintubation. Chest x-ray shows good position of the ET, approximately 3 centimeters above the fay. Procedures tolerated well. There were no complications. [facility] [place]odes (Charges) Resuscitation Resuscitation: 47959 Endotracheal Intubation, emergency Coding CPT Codes Resuscitation - Resuscitation: 09222 Endotracheal Intubation, emergency ([id number]) Additional Codes Date of Service (PG.SURGERY)
--- NOTE | 2025-08-27 14:01 | Critical Care Consultation ---
Date of Consultation August 27, 2025 Assessment & Plan (1) Acetaminophen overdose: (2) AMS (altered mental status): (3) Metabolic acidosis: (4) Seizure-like activity: Plan Patient is a 55-year-old incarcerated male who was brought in by EMS today for altered mental status. The patient had been having nausea and vomiting overnight. Was found unresponsive in bed this morning. In the emergency department the patient was significantly somnolent. CT imaging of the head was noncontributory except for a contusion appreciated on the posterior scalp. Labs showed metabolic acidosis. The patient was significantly somnolent. Toxicology showed an elevated acetaminophen level at 443. Ethanol level was low. Salicylates were low. Poison control was notified. The patient received fomepizole and acetylcysteine. He had an episode of seizure-like activity and I witnessed 1 as well when I evaluated him in the ER. Was intubated with RSI and size 8 ET tube successfully for airway protection. Transferred to the medical ICU. Reason Critically Ill: Tylenol overdose Altered mental status Seizure like activity Loss of airway protective reflexes Metabolic acidosis Neuro: Altered mental status. Intubated for airway protection. Seizure-like activity. EEG is pending. Ethylene glycol and methanol levels are pending along with UDS. Sedation with propofol. Received fomepizole. Cardiac: Sinus rhythm. No elevation in troponin. Blood pressure acceptable. Not in shock. Respiratory: Intubated for airway protection 08/27/2025 with size 8 ET tube. Mechanical ventilation, tidal volume 450, respiratory rate 18, PEEP 5, FiO2 30% ABGs acceptable. Chest x-ray shows good position of ET tube, approximately 3 cm above the fay. Chest x-ray did not show evidence of infiltrates. Saturating well. GI: LFTs not elevated. Will need to be repeated in the morning. Monitor stool output. Add MiraLAX if needed. OG is in place. If remains on ventilator will initiate tube feeds tomorrow. Acetaminophen overdose, levels are significantly elevated. Being treated with acetylcysteine. RENAL/LYTES: Metabolic acidosis. Not in LEROY at this time. Concern for overdose, possibly methanol. Will give 1 L of LR. Perez catheter in place. Monitor output. Monitor chemistry including serum osmolarity. Osmolar gap is 4 (normal). : Perez catheter in place. Monitor strict I's and O's. Increased RBCs on UA. ENDO: Blood glucose acceptable at this time. Monitor with every 6 labs. HEME: No significant leukocytosis or anemia. Repeat with daily labs. ID: No evidence of infection at this time. No indication for antibiotics. Feeding: NPO, consider tube feeds if remains intubated for 24 hours. Fluids: No maintenance fluids Analgesia: Fentanyl pushes as needed Activity: Bedrest, head of bed elevated Thromboprophylaxis: Place SCDs Ulcer prophylaxis: None, will consider enteral feeding versus PPI/H2 lara tomorrow if he remains on the ventilator. Glycemic control: Monitor blood glucose every 6, no indication for insulin at this time Bowels: Monitor stools, MiraLAX can be added if needed Indwelling catheters: Perez catheter, peripheral IVs, ET tube, OG tube Antibiotics: None Plan: Patient will be admitted to the ICU. Remains critically ill. Overdose of unknown substance. Acetaminophen level is high and he is being treated for this with acetylcysteine. Question of ketamine and homemade alcohol consumption at the correction recently. Additional toxicology is pending. Poison control is on board. Patient received fomepizole. Will continue mechanical ventilation, keep sedated with propofol. He did have some questionable seizure-like activity and EEG was ordered and is pending. I have personally spent 70 minutes of critical care time in the direct management of this patient. This is a life/limb threatening event. This includes time spent evaluating patient, direct bedside care, chart review, placing orders, interpretation of diagnostic studies, discussion with consultants, patient, and family members, as well as other required patient management activities. This time is exclusive of all separately billable procedures, and teaching time and separate from and in addition to any other critical care service time. History of Present Illness Reason for Consultation: Overdose Requesting Physician: Judith Ralph MD Attending Physician: Judith Ralph MD History of Present Illness Patient is a 55-year-old male incarcerated male with minimal past medical history who presented to the emergency department today as an overdose. The patient reportedly had nausea and vomiting throughout the night last night, he did not show up for rounds in the morning and was found unresponsive in his bed at approximately 7:15 AM. EMS arrived and gave him 2 rounds of Narcan with minimal improvement. The patient was brought into the emergency department for further evaluation. EKG was obtained on arrival which showed normal sinus rhythm without ST elevation or depression. Chest x-ray did not show any acute findings. Lungs were clear. CT of the head was also obtained which did not show any hemorrhage, mass effect or evidence of ischemia. There was a posterior scalp contusion appreciated. Laboratory evaluation showed normal CBC, VBG showed a pH of 7.25. Chemistry showed sodium 137, potassium 3.5, bicarb 16, anion gap 19, creatinine 1.1, glucose 160, osmolality 295, normal LFTs, troponin was not elevated, normal thyroid function and prolactin. Urinalysis showed 3+ ketones negative for leukocyte Estrace and nitrates. Many RBCs were appreciated. Toxicology screen showed Tylenol level of 433, negative salicylates and low ethanol. Poison control was notified. They recommended administering fomepizole and acetylcysteine. The plan was to admit the patient to the ICU. While he was in the ER the hospitalist witnessed a episode that appeared to be a seizure and I evaluated him shortly thereafter. When I examined the patient in the ER he is somnolent. He will wake up slightly but does not answer questions and not voluntarily opening his eyes much. Not following commands. Pupils are equal midline. There is muscle tremoring and fasciculations appreciated throughout. There is some rigidity and when I was testing for clonus the patient developed a 32nd episode of total body myoclonus versus seizure-like episode and quickly recovered. Mentation is still poor. I personally called poison control and discussed the case with them. It did not seem as simple as that Tylenol overdose. I also spoke with the correction guards were present at bedside. They said that there is K2 going around the long term and they are mixing it with hooch (homemade alcohol, toilet alcohol). The only medications the patient takes is occasional ibuprofen. He is not on any prescribed medications. Due to significant altered mental status and seizure-like activity along with concern for aspiration the decision was made to intubate. Prior to giving medications for RSI the patient started sitting up and vomited, luckily we were able to prevent aspiration and he vomited off the side of the bed. The patient was given etomidate, rocuronium and Versed for RSI and intubated with a size 8 ET tube without any difficulty. He was started on propofol per recommendations from poison control. Allergies Allergy/AdvReac Type Severity Reaction Status Date / Time Sulfa (Sulfonamide Allergy Unknown Verified 08/27/25 10:59 Antibiotics) Home Medications Medication Instructions Recorded Confirmed Type albuterol sulfate 90 mcg/actuation 1 inh inhalation TID PRN Shortness 08/27/25 08/27/25 History aerosol inhaler Of Breath Patient History Social History Smoking Status: Unknown if ever smoked Preferred Language: Turkmen Feels Safe at Home: Yes Review of Systems Review of Systems: Not able to be obtained. Physical Exam Physical Exam: Physical examination: General: Appears stated age, somnolent. HEENT: Normocephalic, atraumatic. No contusions appreciated. Sclera are nonicteric. No JVD appreciated. Pupils are midline. Skin: Warm and dry. Multiple tattoos. No significant rashes or bruising ap preciated. Cardiovascular: Heart is a regular rate and rhythm, no murmurs appreciated on my exam. No significant lower extremity edema. Lungs: Clear bilaterally, no wheezing appreciated. No crackles. Nontachypneic. Resting comfortably on room air. Abdomen: Nondistended, nontender to palpation. No masses appreciated. Musculoskeletal: Normal muscle mass and tone. No gross joint deformity abno rmalities. No effusions appreciated. Neurologic: Somnolent, slightly wakes to voice but falls right back to sleep. Clonus and muscle rigidity appreciated. Fasciculations. Seizure-like episode witnessed at bedside. Results & Data Results & Data Vital Signs (Past 12 Hours) Vital Signs Temp Pulse Resp BP Pulse Ox O2 Del Method FiO2 08/27/25 13:19 106 H 19 162/94 H 100 Mechanical Vent 08/27/25 13:00 116 H 18 99 40 08/27/25 12:30 87 18 98 08/27/25 12:30 123/73 08/27/25 12:29 127/78 08/27/25 12:21 98 08/27/25 12:15 113/64 08/27/25 12:15 81 16 113/64 98 Room Air 08/27/25 12:13 88 14 112/67 97 Room Air 08/27/25 12:00 93 H 16 141/79 H 97 Room Air 08/27/25 11:45 100 H 16 122/69 98 Room Air 08/27/25 11:30 90 22 153/84 H 98 Room Air 08/27/25 11:15 133/67 08/27/25 10:51 86 16 96 08/27/25 10:45 150/82 H 08/27/25 10:45 150/82 H 08/27/25 10:45 150/82 H 08/27/25 10:45 150/82 H 08/27/25 10:45 150/82 H 08/27/25 10:45 97 H 19 98 08/27/25 10:42 107 H 22 97 08/27/25 10:30 139/91 08/27/25 10:30 139/91 08/27/25 10:30 139/91 08/27/25 10:30 139/91 08/27/25 10:30 139/91 08/27/25 10:30 110 H 27 H 98 08/27/25 10:29 144/87 H 08/27/25 10:27 95 H 20 96 08/27/25 10:21 98 H 22 97 08/27/25 10:15 108 H 23 97 08/27/25 10:15 139/101 H 08/27/25 10:15 139/101 H 08/27/25 10:15 139/101 H 08/27/25 10:15 139/101 H 08/27/25 10:15 139/101 H 08/27/25 10:12 13 98 08/27/25 10:01 139/62 08/27/25 10:01 139/62 08/27/25 10:01 139/62 08/27/25 10:01 139/62 08/27/25 10:01 139/62 08/27/25 10:00 85 15 96 08/27/25 09:51 18 98 08/27/25 09:46 158/80 H 08/27/25 09:46 158/80 H 08/27/25 09:46 158/80 H 08/27/25 09:46 158/80 H 08/27/25 09:46 158/80 H 08/27/25 09:45 114 H 23 97 08/27/25 09:42 96 H 18 95 08/27/25 09:32 92 H 20 98 08/27/25 09:31 113/70 08/27/25 09:31 113/70 08/27/25 09:31 113/70 08/27/25 09:31 113/70 08/27/25 09:31 113/70 08/27/25 09:29 97 H 21 98 08/27/25 09:28 98 Room Air 08/27/25 09:26 96 H 23 97 08/27/25 09:25 125/72 08/27/25 09:25 125/72 08/27/25 09:25 125/72 08/27/25 09:25 125/72 08/27/25 09:25 125/72 08/27/25 09:11 103 H 16 97 08/27/25 09:02 91 H 21 96 08/27/25 09:00 129/81 08/27/25 09:00 129/81 08/27/25 09:00 129/81 08/27/25 09:00 129/81 08/27/25 09:00 129/81 08/27/25 08:59 99 H 20 97 08/27/25 08:52 98 Room Air 08/27/25 08:50 90 19 98 08/27/25 08:45 123/74 08/27/25 08:45 123/74 08/27/25 08:45 123/74 08/27/25 08:45 123/74 08/27/25 08:45 123/74 08/27/25 08:44 105 H 22 98 08/27/25 08:41 85 22 95 08/27/25 08:33 116/69 08/27/25 08:33 116/69 08/27/25 08:33 116/69 08/27/25 08:33 116/69 08/27/25 08:33 116/69 08/27/25 08:33 36.6 C 103 H 17 123/76 97 Room Air 08/27/25 08:32 94 H 23 97 08/27/25 08:28 91 H 08/27/25 08:26 92 H 20 93 08/27/25 08:23 104/80 08/27/25 08:23 104/80 08/27/25 08:23 104/80 Coding Level of Care Code 67171 CRITICAL CARE 1ST 30-74M Diagnoses Acetaminophen overdose T39.1X1A AMS (altered mental status) R41.82 Metabolic acidosis E87.20 Seizure-like activity R56.9
--- NOTE | 2025-08-27 14:06 | XRay Report ---
XR chest 1V portable CLINICAL HISTORY: intubation COMPARISON STUDY: Earlier today. FINDINGS: Endotracheal tube tip is just below the thoracic inlet. Nasogastric tube tip is in the prox imal stomach. Heart size and pulmonary vasculature are normal. No consolidation or pleural effusion s een. No pneumothorax. There is partially visualized gaseous distention of the transverse colon. IMPRESSION: Well-positioned endotracheal tube with well-aerated lungs. ACT 112: Negative or not required by law. Electronically signed by: Camilo Chicas M.D. 08/27/2025 2:04 PM
--- NOTE | 2025-08-27 14:10 | Electroencephalogram ---
EEG Procedure Note Date of Service August 27, 2025 Start / End Times Start Time: 1300 End Time: [address] Ralph History 55 year old with an acetaminophen overdose and seizure like activity Home Medication List Medication Instructions Recorded Confirmed Type albuterol sulfate 90 mcg/actuation 1 inh inhalation TID PRN Shortness 08/27/25 08/27/25 History aerosol inhaler Of Breath Inpatient Medication List Acetylcysteine 4,810 mg/ (Dextrose) 524.05 mls @ 125 mls/hr IV ONCE ONE; Protocol Stop: 08/27/25 14:49 Last Admin: 08/27/25 11:56 Dose: 125 mls/hr Documented By: raquel Discontinued Medications Acetylcysteine (Acetylcysteine Iv 21 Hr Regimen (>40kg)) 1 each IV NOW STA; Protocol Stop: 08/27/25 09:38 Last Admin: 08/27/25 10:30 Dose: Not Given Documented By: FLOR Acetylcysteine 14,420 mg/ (Dextrose) 272.1 mls @ 200 mls/hr IV ONCE ONE; Protocol Stop: 08/27/25 10:58 Last Infusion: 08/27/25 11:54 Dose: Infused Documented By: raquel Admin: 08/27/25 10:29 Dose: 200 mls/hr Documented By: FLOR Fomepizole 1,440 mg/ Dextrose 101.44 mls @ 200 mls/hr IV NOW STA Stop: 08/27/25 10:44 Last Infusion: 08/27/25 11:55 Dose: Infused Documented By: raquel Admin: 08/27/25 11:23 Dose: 200 mls/hr Documented By: raquel Lorazepam (Lorazepam 1 Mg/1 Ml Syr Ed Inj Use) Confirm Administered Dose 2 mg .ROUTE .STK-MED ONE Stop: 08/27/25 11:43 Last Admin: 08/27/25 12:58 Dose: Not Given Documented By: BURAK Subramanian (Stat Iv/Im) 1 each N/A NOW STA Stop: 08/27/25 09:38 Last Admin: 08/27/25 12:58 Dose: Not Given Documented By: BURAK Subramanian (Rapid Sequence Induction Bag) Confirm Administered Dose 1 each N/A .STK-MED ONE Stop: 08/27/25 12:32 Last Admin: 08/27/25 12:58 Dose: Not Given Documented By: JW Naloxone HCl (Naloxone Hcl 0.4 Mg/1 Ml Vial/Carp) 0.2 mg IV NOW STA Stop: 08/27/25 08:43 Last Admin: 08/27/25 09:05 Dose: 0.2 mg Documented By: ML Naloxone HCl (Naloxone Hcl 0.4 Mg/1 Ml Vial/Carp) 0.4 mg IV NOW STA Stop: 08/27/25 09:39 Last Admin: 08/27/25 10:29 Dose: 0.4 mg Documented By: ML Ondansetron HCl (Ondansetron Inj 2 Mg/Ml 2 Ml Vial) 4 mg IV NOW STA Stop: 08/27/25 09:02 Last Admin: 08/27/25 09:05 Dose: 4 mg Documented By: ML Ondansetron HCl (Ondansetron Inj 2 Mg/Ml 2 Ml Vial) Confirm Administered Dose 4 mg .ROUTE .STK-MED ONE Stop: 08/27/25 09:02 Last Admin: 08/27/25 09:05 Dose: Not Given Documented By: ML Propofol (Propofol Iv Emulsion 10 Mg/Ml 100 Ml Vial) Confirm Administered Dose 1,000 mg IV .STK-MED ONE Stop: 08/27/25 12:28 Last Admin: 08/27/25 12:59 Dose: Not Given Documented By: BURAK Description This is a 21 electrode EEG with a single channel dedicated to limited EKG. The electrodes were placed in accordance with the International 10-20 system. Interpretation The predominant background activity consists of an irregular 9 Hz activity, of up to 60 mV in amplitude,seen symmetrically distributed over the posterior head regions bilaterally. The patient was not responsive to any verbal or stimulating cues and the activity did not change with any attempted arousal stimuli. Photic stimulation was performed and elicited no change in the background activity and no abnormal responses were seen. Hyperventilation was not performed. A minimal amount of patient muscle tension and movement artifact activity was present, not hindering interpretation for any significant portion of the recording. However, towards the end of the procedure nursing was moving the bed and created a considerable amount of movement artifact back activity which contaminate the recording. Throughout the recording were intermittent periods of 6 to 8 Hz activity of medium amplitude admixed with a background activity at times in a diffuse, nonfocal manner. Throughout the recording, no focal abnormalities or potentially epileptogenic discharges were seen. In summary, this EEG was mildly abnormal given the minimal generalized dysrhythmia changes seen throughout the recording. No focal abnormalities or potentially epileptogenic discharges were seen. Clinical Correlation The absence of potentially epileptogenic activity does not exclude a seizure disorder, since interictally, EEGs can be normal. The minimal/mild generalized slow activity is consistent with a very mildo mild encephalopathy which could be due to a wide variety of causes. Clinical correlation is required. [facility] EEG Procedure Codes Indication for Procedure (1) Seizure-like activity: (2) Acetaminophen overdose: (3) Unresponsive episode: Neurology Neurology: 73794 EEG include record awake & drowsy
[2025-08-27 14:28] LABS: iSTAT Art Bld Gas Base Excess -11.0 mmol/L (-9-1.8); iSTAT Art Bld Gas pCO2 Correct 34 mmHg (35-46); iSTAT Art Bld Gas pH Corrected 7.281 (7.35-7.45); iSTAT Arterial Blood Gas pO2 C 137
[2025-08-27] MEDS: PLASMA-LYTE A 1,000 ML IV SCH (17:15)
[2025-08-27] MEDS ORDERED: STAT IV Infusion **Titration per Protocol STA (20:36)
[2025-08-27 21:03] LABS: Base Excess VBG -6.6 mEq/L; HCO3 VBG 19 mmol/L; Oxygen Saturation VBG 93.9 %; PCO2 VBG 35 mmHg (38-50); PO2 VBG 63 mmHg; pH VBG 7.33 (7.36-7.41)
[2025-08-27 21:20] LABS: Albumin Level 3.8 gm/dl (3.4-5.0); Anion Gap 17.0 (3-11); Bilirubin,Total 0.5 mg/dl (0.2-1.0); Calcium 8.9 mg/dl (8.6-10.3); Carbon Dioxide 19.0 mmol/L (21-32); Chloride 100.0 mmol/L (98-107); Potassium 4.0 mmol/L (3.5-5.1); Sodium 136.0 mmol/L (136-145)
[2025-08-27 21:25] LABS: Alanine Aminotransferase 39.0 U/L (7-52); Albumin Globulin Ratio 1.3 (0.9-2); Alkaline Phosphatase 66.0 U/L (34-104); Blood Urea Nitrogen 24.0 mg/dl (6-23); Creatinine Clr Calc Pharmacy 71.2 ml/min; Globulin 3.0 gm/dl (2.5-4.0); Glucose 131.0 mg/dl (70-99(Fasting)); Total Protein 6.8 gm/dl (6.0-8.3)
[2025-08-27 23:46] LABS: Alanine Aminotransferase 38.0 U/L (7-52); Albumin Level 4.0 gm/dl (3.4-5.0); Alkaline Phosphatase 69.0 U/L (34-104); Bilirubin,Total 0.4 mg/dl (0.2-1.0); Total Protein 7.1 gm/dl (6.0-8.3)
[2025-08-27] MEDS: PROPOFOL BOLUS FROM BAG IV PRN (23:55)
[2025-08-28 00:02] LABS: INR 1.3 (0.9-1.1); Prothrombin Time 13.1 Seconds (9.0-12.0)
[2025-08-28 00:36] LABS: Base Excess VBG -6.4 mEq/L; HCO3 VBG 21 mmol/L; Oxygen Saturation VBG < 60.0 %; PCO2 VBG 48 mmHg (38-50); PO2 VBG 25 mmHg; pH VBG 7.25 (7.36-7.41)
[2025-08-28 00:58] LABS: Alanine Aminotransferase 40.0 U/L (7-52); Albumin Globulin Ratio 1.3 (0.9-2); Albumin Level 4.1 gm/dl (3.4-5.0); Alkaline Phosphatase 72.0 U/L (34-104); Anion Gap 16.0 (3-11); Bilirubin,Total 0.5 mg/dl (0.2-1.0); Blood Urea Nitrogen 25.0 mg/dl (6-23); Calcium 8.4 mg/dl (8.6-10.3); Carbon Dioxide 21.0 mmol/L (21-32); Chloride 98.0 mmol/L (98-107); Creatinine Clr Calc Pharmacy 54.2 ml/min; Globulin 3.2 gm/dl (2.5-4.0); Glucose 136.0 mg/dl (70-99(Fasting)); Potassium 3.7 mmol/L (3.5-5.1); Sodium 135.0 mmol/L (136-145); Total Protein 7.3 gm/dl (6.0-8.3)
[2025-08-28] MEDS ORDERED: FOLIC ACID IV SCH (01:15)
[2025-08-28] MEDS: FOLIC ACID IV SCH (02:16)
[2025-08-28] MEDS: SODIUM CHLORIDE 0.9% IV SCH (02:16)
[2025-08-28 05:21] LABS: Hematocrit (blood only) 40.8 % (42.0-52.0); Hemoglobin 14.5 g/dl (14.0-18.0); Immature Granulocytes # (auto) 0.11 K/uL (0.01-0.20); Immature Granulocytes % (auto) 0.5 %; Mean Corpuscular Hemoglobin 30.5 pg (25.0-34.0); Mean Corpuscular Volume 85.7 fL (80.0-100.0); Platelet Count 253 K/uL (130-400); RDW Standard Deviation 41.6 fL (36.4-46.3); Red Blood Count 4.76 M/uL (4.70-6.10); White Blood Count 21.64 K/ul (4.8-10.8)
[2025-08-28 05:30] LABS: Alanine Aminotransferase 34.0 U/L (7-52); Albumin Level 3.7 gm/dl (3.4-5.0); Alkaline Phosphatase 64.0 U/L (34-104); Anion Gap 19.0 (3-11); Bilirubin,Total 0.4 mg/dl (0.2-1.0); Blood Urea Nitrogen 29.0 mg/dl (6-23); Calcium 8.1 mg/dl (8.6-10.3); Carbon Dioxide 20.0 mmol/L (21-32); Chloride 97.0 mmol/L (98-107); Creatinine Clr Calc Pharmacy 45.2 ml/min; Glucose 128.0 mg/dl (70-99(Fasting)); Magnesium 2.2 mg/dl (1.7-2.4); Potassium 3.7 mmol/L (3.5-5.1); Sodium 136.0 mmol/L (136-145); Total Protein 6.5 gm/dl (6.0-8.3)
[2025-08-28] MEDS: THIAMINE HCL 100 MG in SYRINGE 9 ML IV SCH (09:00)
[2025-08-28] MEDS ORDERED: STAT IV/IM STA (09:47)
[2025-08-28] MEDS ORDERED: AcetylCYSTEINE IV 21 HR REGIMEN (21-40KG) IV STA (09:47)
[2025-08-28] MEDS: LACTATED RINGER'S 1,000 ML IV SCH (10:00)
--- NOTE | 2025-08-28 12:21 | Critical Care Progress Note ---
Date of Service August 28, 2025 Assessment & Plan (1) Acetaminophen overdose: (2) AMS (altered mental status): (3) Metabolic acidosis: (4) Seizure-like activity: (5) LEROY (acute kidney injury): Plan Patient is a 55-year-old incarcerated male who was brought in by EMS today for altered mental status. The patient had been having nausea and vomiting overnight. Was found unresponsive in bed this morning. In the emergency department the patient was significantly somnolent. CT imaging of the head was noncontributory except for a contusion appreciated on the posterior scalp. Labs showed metabolic acidosis. The patient was significantly somnolent. Toxicology showed an elevated acetaminophen level at 443. Ethanol level was low. Salicylates were low. Poison control was notified. The patient received fomepizole and acetylcysteine. He had an episode of seizure-like activity and I witnessed 1 as well when I evaluated him in the ER. Was intubated with RSI and size 8 ET tube successfully for airway protection. Transferred to the medical ICU. The patient remained on mechanical ventilation and sedated with propofol overnight. He remained on acetylcysteine. Poison control following along. Tylenol levels trending down. Urine output decreased, patient is in LEROY today. Electrolytes okay. Does wake up when sedation is decreased. Moving all extremities. Urine drug screen negative. Methadone is pending. Ethylene glycol and methyl alcohol levels pending. Reason Critically Ill: Tylenol overdose Altered mental status Seizure like activity Loss of airway protective reflexes Metabolic acidosis LEROY Neuro: Altered mental status. Intubated for airway protection 08/27/25 Seizure-like activity. EEG negative. Ethylene glycol and methanol levels are pending, UDS negative so far. Sedation with propofol. PRN fentanyl pushes. Received fomepizole. Cardiac: Sinus rhythm. No elevation in troponin. Blood pressure acceptable. Not in shock. Respiratory: Intubated for airway protection 08/27/2025 with size 8 ET tube. Mechanical ventilation, tidal volume 450, respiratory rate 18, PEEP 5, FiO2 25% VBG with metabolic acidosis. Chest x-ray shows good position of ET tube, approximately 3 cm above the fay. Chest x-ray did not show evidence of infiltrates. Saturating well. GI: LFTs not elevated. Will repeat INR. Monitor stool output. Add MiraLAX if needed. OG is in place. High output. Low intermittent suction. Holding tube feeds for now. Acetaminophen overdose, levels are significantly elevated, trending down. On acetylcysteine. Poison control on board. Repeat level at 2 PM. Will continue acetylcysteine until level is undetectable. RENAL/LYTES: Metabolic acidosis. Urine output decreasing. LEROY this morning. Will give IV fluids with LR. Concern for overdose, possibly methanol. Perez catheter in place. Monitor output. Monitor chemistry including serum osmolarity. Osmolar gap is 4 (normal). Will check CK. Check uric acid level. Will check lactic acid. Routine nephrology consult. : Perez catheter in place. Monitor strict I's and O's. Increased RBCs on UA. ENDO: Blood glucose acceptable at this time. Monitor with every 6 labs. HEME: No significant leukocytosis or anemia. Repeat with daily labs. ID: No evidence of infection at this time. No indication for antibiotics. Feeding: NPO, hide gastric output from NG, keep to low intermittent suction hold tube feeds for now. If no tube feeds tomorrow can start PPI. Fluids: LR. Analgesia: Fentanyl pushes as needed Activity: Bedrest, head of bed elevated Thromboprophylaxis: Place SCDs Ulcer prophylaxis: None, will consider enteral feeding versus PPI/H2 lara tomorrow if he remains on the ventilator. Glycemic control: Monitor blood glucose every 6, no indication for insulin at this time Bowels: Monitor stools, MiraLAX can be added if needed Indwelling catheters: Perez catheter, peripheral IVs, ET tube, OG tube Antibiotics: None Plan: Patient will be admitted to the ICU. Remains critically ill. Overdose of unknown substance. Acetaminophen level is high and he is being treated for this with acetylcysteine. Question of ketamine and homemade alcohol consumption at the halfway recently. UDS negative. Methanol and ethylene glycol pending. Continuing acetylcysteine until acetaminophen level is undetected. Poison control following. And LEROY. Getting nephrology on board. I have personally spent 55 minutes of critical care time in the direct management of this patient. This is a life/limb threatening event. This includes time spent evaluating patient, direct bedside care, chart review, placing orders, interpretation of diagnostic studies, discussion with consultants, patient, and family members, as well as other required patient management activities. This time is exclusive of all separately billable procedures, and teaching time and separate from and in addition to any other critical care service time. Admission and Anticipated Discharge Date Admission Date: August 27, 2025 Subjective Past 24-hour events: Patient admitted to the ICU from ER yesterday. Found unresponsive at halfway where he resides. Possible ketamine and homemade alcohol consumption. Also very elevated Tylenol levels. Poison control is following along. The patient received fomepizole. He is also been acetylcysteine. Tylenol levels are being trended. Required intubation for airway protection prior to ICU admission. Had high gastric output and vomiting episodes overnight. Rounding: Sedated with propofol on my rounds. According to nurses that when sedation is lowered he does wake up. Moves all extremities and reaches for the ET tube. Opens eyes. Guards at bedside. Patient is in 1 upper extremity 1 lower extremity shackles. Intake: 4174 mL Output: 3970 mL Net: +204 mL Mechanical ventilation: Volume AC, tidal volume 450, rate 18, PEEP 5 and FiO2 25%. Feeding: N.p.o., OG tube to low intermittent suction IV infusions: Osmolite, propofol Indwelling catheters: Perez catheter, peripheral IVs, OG tube, ET tube Laboratory: CBC: WBC 21, hemoglobin 14.5, platelets 253 Chemistry: Sodium 136, potassium 3.7, chloride 97, bicarb 20, anion gap 19, BUN 29, creatinine 2.11, glucose 128, calcium 8.1, phosphorus 5.1, magnesium 2.2, AST 28, ALT 34, alk phos 64, acetaminophen 61 VB.25, pCO2 48 Review of Systems Review of Systems: Not able to be obtained. Physical Exam Physical Exam: Physical examination: General: Sedated, mechanically ventilated. Appears stated age. In shackles. HEENT: Normocephalic, atraumatic. No contusions appreciated. Sclera are nonicteric. No JVD appreciated. Pupils are midline. Skin: Warm and dry. Multiple tattoos. No significant rashes or bruising appre ciated. Cardiovascular: Heart is a regular rate and rhythm, no murmurs appreciated on my exam. No significant lower extremity edema. Lungs: Clear bilaterally, no wheezing appreciated. No crackles. Nontachypneic. Resting comfortably on room air. Abdomen: Nondistended, nontender to palpation. No masses appreciated. Musculoskeletal: Normal muscle mass and tone. No gross joint deformity abnorma lities. No effusions appreciated. Neurologic: Sedated with propofol. Minimally responsive. Results & Data Results & Data Vital Signs (Past 12 Hours) Vital Signs Temp Pulse Resp BP Pulse Ox O2 Del Method FiO2 08/28/25 11:35 Mechanical Vent 25 08/28/25 11:25 106 H 18 95 25 08/28/25 08:30 37.9 C H 114 H 18 96 08/28/25 08:00 38.0 C H 117 H 18 96 08/28/25 08:00 90/67 L 08/28/25 08:00 25 08/28/25 07:30 128/86 08/28/25 07:30 37.8 C H 117 H 19 95 08/28/25 07:28 116 H 20 96 25 08/28/25 07:00 37.9 C H 115 H 18 97 08/28/25 07:00 102/67 08/28/25 05:00 114/77 08/28/25 05:00 38.0 C H 114 H 21 97 08/28/25 04:30 37.9 C H 115 H 18 96 08/28/25 04:30 120/76 08/28/25 04:00 125/77 08/28/25 04:00 37.9 C H 117 H 18 97 08/28/25 04:00 25 08/28/25 03:37 113 H 19 97 25 08/28/25 03:30 120/80 08/28/25 03:30 37.8 C H 114 H 20 97 08/28/25 03:00 37.6 C H 116 H 19 96 08/28/25 03:00 124/79 08/28/25 02:30 128/73 08/28/25 02:30 37.6 C H 115 H 18 96 08/28/25 02:00 37.5 C 111 H 21 97 08/28/25 02:00 132/87 08/28/25 01:30 37.5 C 107 H 18 98 08/28/25 01:30 133/79 08/28/25 01:00 114/73 08/28/25 01:00 37.6 C H 110 H 18 97 Coding Level of Care Code 68782 CRITICAL CARE 1ST 30-74M Diagnoses Acetaminophen overdose T39.1X1A AMS (altered mental status) R41.82 Metabolic acidosis E87.20 Seizure-like activity R56.9 LEROY (acute kidney injury) N17.9
[2025-08-28 13:08] LABS: Creatine Kinase 28.0 U/L (30-223); Uric Acid 5.3 mg/dl (2.6-7.2)
[2025-08-28 13:15] LABS: INR 1.3 (0.9-1.1); Prothrombin Time 13.6 Seconds (9.0-12.0)
[2025-08-28 15:26] LABS: Alanine Aminotransferase 30.0 U/L (7-52); Albumin Globulin Ratio 1.6 (0.9-2); Albumin Level 3.7 gm/dl (3.4-5.0); Alkaline Phosphatase 56.0 U/L (34-104); Anion Gap 18.0 (3-11); Bilirubin,Total 0.3 mg/dl (0.2-1.0); Blood Urea Nitrogen 30.0 mg/dl (6-23); Calcium 7.7 mg/dl (8.6-10.3); Carbon Dioxide 21.0 mmol/L (21-32); Chloride 96.0 mmol/L (98-107); Creatinine Clr Calc Pharmacy 30.8 ml/min; Globulin 2.3 gm/dl (2.5-4.0); Glucose 120.0 mg/dl (70-99(Fasting)); Potassium 3.9 mmol/L (3.5-5.1); Sodium 135.0 mmol/L (136-145); Total Protein 6.0 gm/dl (6.0-8.3)
--- NOTE | 2025-08-28 15:34 | XRay Report ---
KUB HISTORY: check OGT,vomiting COMPARISON STUDY: None FINDINGS: Orogastric tube tip is in the mid body of the stomach. There are a few loops of mildly dist ended colon at the visualized upper abdomen. IMPRESSION: Orogastric tube tip is at the mid body of the stomach. ACT 112: Negative or not required by law. The above report was generated using voice recognition software. It may contain grammatical, syntax o r spelling errors. Electronically signed by: Camilo Chicas M.D. 08/28/2025 3:32 PM
--- NOTE | 2025-08-28 16:21 | Hospitalist Progress Note ---
Date of Service August 28, 2025 Assessment & Plan (1) Unresponsive episode: (2) Metabolic acidosis: (3) Acetaminophen overdose: (4) Seizure-like activity: Plan This patient is a 55-year-old male prisoner with a history of asthma and chronic pain syndrome on ibuprofen and acetaminophen, who presents after being found unresponsive in his shelter cell around 7:30 AM. It was noted that he had had some nausea and vomiting through the night and when he did not show for morning muster, he was found to be unresponsive. There was a suspicion for overdose although no paraphernalia or medication bottles were found with his belongings. He was administered Narcan x 2 at the shelter with only brief improvement. Apparently there is ketamine, "hooch" (homemade alcohol), and Suboxone being illicitly circulated at the shelter. The patient was obtunded on arrival and he was having a tremor all over and then did have some significant myoclonus of the entire lower half of his body versus tonic-clonic seizure briefly. He was found to be acidotic with a VBG pH of 7.25, CO2 30, serum bicarbonate 16 with an anion gap of 19 with elevated lactate, elevated APAP level at 443, negative EtOH level, with normal renal and hepatic function, normal TSH, and normal vital signs. Poison control center was contacted who recommended fomepizole and N- acetylcysteine treatment. I consulted with the nurses medical assistants phlebotomists who recommended intubation for airway protection in case of vomiting as the patient had vomited in the ED while obtunded. He is admitted to the ICU for toxic ingestion, metabolic acidosis, and toxic encephalopathy with possible seizures. #Unresponsive episode/toxic ingestion/metabolic acidosis-likely secondary to toxic ingestion. With lactic acidosis now resolved, serum osmolality normal to somewhat elevated but osmole gap normal. Urine drug screen negative, EtOH level negative, but APAP level elevated and with metabolic acidosis with anion gap. There has been reported use of homemade alcohol which could include methanol and ethylene glycol as well as ketamine reported in the shelter. With nausea/vomiting and patient being obtunded, intubated in the ED by nurses medical assistants phlebotomists for airway protection. With myoclonus versus seizure activity could be sec ondary to toxic ingestion. EEG negative for seizure activity. CT head negative except for posterior scalp contusion which could have been from a fall when intoxicated. Do not suspect meningitis or encephalitis as he is afebrile and no other signs of infection. Now sedated on propofol and acidosis is slowly improving. He has been treated with fomepizole and NAC. Poison control recommended high-dose folic acid 50 mg IV every 4 hours as well. Continues with some nausea and vomiting while intubated-KUB without obstruction. - Continued stay ICU- Ventilator management as per nurses medical assistants phlebotomists - Continue IV fluids, treating with fomepizole and N-acetylcysteine, IV folic acid high-dose, IV thiamine - Plan to keep in contact with poison control center - Follow serial CMP, serum osmolality, VBG pH, lactate - Check methanol level and ethylene glycol level which are reference labs/send out-pending #Acetaminophen overdose-acetaminophen level quite elevated at 443 and now trending downward. The patient does have access to [id number] Tylenol as per the shelter guards. LFTs are normal, INR is normal thus far. - Continue NAC treatment as per poison control until APAP level is 0 - Follow LFTs, PT/INR, APAP levels #LEROY-creatinine continues to trend upward to 3.0, he is nonoliguric. He did have access to ibuprofen as well-could be from NSAID use? His blood pressures have been normal. Perhaps from toxic ingestion with renal injury from that. UA with 1+ blood, greater than 20 RBCs, 3-5 hyaline casts, 11-20 WBCs, no protein - Obtain renal ultrasound to rule out obstruction - Appreciate nephrology consultation - Follow I's and O's, Perez catheter in place - Continue LR at 150 mL/h - Follow serial chemistries for renal function and electrolytes - May need hemodialysis if acidosis not improving #Fever-spiked a fever on the night of 08/27. With development of significant leukocytosis. He has been vomiting. KUB without evidence of bowel obstruction and abdomen is soft/benign. No diarrhea. Perhaps from toxic ingestion? CK remains normal. Perhaps serotonin syndrome if he overdosed on an SSRI? UA with WBCs but urine culture no growth - Check blood cultures, sputum culture - Hold off on antibiotics for now #Seizure-like activity/myoclonus-with witnessed significant tonic clonic brief movements by both myself and the nurses medical assistants phlebotomists but only when his lower extremities were touched. Could be seizure activity given overdose EEG negative for seizure activity but was performed after he was sedated with Versed and propofol. - Remains on propofol for sedation #Mild intermittent asthma-no acute issues, no wheezing and normal pulse ox - Can use albuterol as needed DVT prophylaxis-SCDs only for now GI prophylaxis-plan to add IV PPI/H2 lara if remains on ventilator on 08/29 Disposition-admit to ICU Admission and Anticipated Discharge Date Admission Date: August 27, 2025 Subjective Patient remains sedated and intubated. He spiked a fever overnight. He also vomited overnight. His OG tube was placed to suction. I discussed his care with the nurses medical assistants phlebotomists. He is making urine but developed acute kidney injury overnight Physical Exam Constitutional: WD/WN, vitals as above Respiratory: normal respiratory effort, lungs clear to auscultation Cardiovascular: RRR, no murmur, no edema Gastrointestinal (Abdomen): normal bowel sounds, soft, nontender, no hepatosplenomegaly Skin: no rashes, warm and dry Psychiatric: Orientation: + not alert and + not oriented x 3 Genitourinary: no testicular masses, no penis abnormality (With Perez catheter in place) Results & Data Results & Data Vital Signs (Past 12 Hours) Vital Signs Temp Pulse Resp BP Pulse Ox O2 Del Method FiO2 08/28/25 15:57 102 H 18 99 25 08/28/25 15:00 37.1 C 94 H 19 99 08/28/25 14:42 37.1 C 101 H 21 99 08/28/25 14:42 130/91 08/28/25 14:42 130/91 08/28/25 14:42 130/91 08/28/25 14:42 130/91 08/28/25 14:42 130/91 08/28/25 14:01 118/80 08/28/25 14:01 118/80 08/28/25 14:01 118/80 08/28/25 14:01 118/80 08/28/25 14:01 118/80 08/28/25 14:00 37.0 C 93 H 16 100 08/28/25 13:00 37.1 C 100 H 16 96 08/28/25 13:00 97/68 L 08/28/25 13:00 97/68 L 08/28/25 13:00 97/68 L 08/28/25 13:00 97/68 L 08/28/25 13:00 97/68 L 08/28/25 12:30 37.2 C 103 H 16 96 08/28/25 12:00 37.3 C 103 H 16 97 08/28/25 12:00 100/68 08/28/25 12:00 25 08/28/25 11:35 Mechanical Vent 25 08/28/25 11:30 37.3 C 102 H 16 98 08/28/25 11:25 106 H 18 95 25 08/28/25 11:00 37.3 C 105 H 19 99 08/28/25 11:00 115/77 08/28/25 10:30 37.4 C 103 H 23 97 08/28/25 10:00 37.6 C H 109 H 19 97 08/28/25 10:00 94/65 L 08/28/25 09:30 37.6 C H 111 H 19 97 08/28/25 09:00 37.7 C H 112 H 18 96 08/28/25 09:00 110/77 08/28/25 08:57 37.7 C H 110 H 27 H 96 08/28/25 08:30 37.9 C H 114 H 18 96 08/28/25 08:00 117 H 08/28/25 08:00 38.0 C H 117 H 18 96 08/28/25 08:00 90/67 L 08/28/25 08:00 25 08/28/25 07:30 128/86 08/28/25 07:30 37.8 C H 117 H 19 95 08/28/25 07:28 116 H 20 96 25 08/28/25 07:00 37.9 C H 115 H 18 97 08/28/25 07:00 102/67 08/28/25 05:00 114/77 08/28/25 05:00 38.0 C H 114 H 21 97 08/28/25 04:30 37.9 C H 115 H 18 96 08/28/25 04:30 120/76 Laboratory Results CBC, CMP, APAP level, lactate, phosphorus, serum osmolality, INR, VBG, blood cultures, sputum culture reviewed Diagnostic Findings KUB and CXR reviewed PG Care Time/CCT Total # of Minutes Spent Total Time Spent with Patient: Total time spent is greater than 50% in coordination of care (as documented) at patient's floor/unit and/or counseling patient: Coding Level of Care Code 22425 SUB INP/OBS CARE 3/50MIN Diagnoses Unresponsive episode R40.4 Metabolic acidosis E87.20 Acetaminophen overdose T39.1X1A Seizure-like activity R56.9
--- NOTE | 2025-08-28 17:29 | Nephrology Consultation ---
Date of Consultation August 28, 2025 Assessment & Plan (1) LEROY (acute kidney injury): Non-oliguric. BP and volume status acceptable. Electrolytes normal. Obtain renal imaging when appropriate. Perez has been placed. Urine microscopy notable for WBCs, RBCs and hyaline casts. No protein. Presentation is very atypical for acute GN. LEROY attributed to ATN but I cannot completely exclude toxic alcohol or other ingestion. Osmolar gap is not elevated but AGMA persists. Toxic alcohol ingestion cannot be excluded. No emergent HD today. Close monitoring will be provided, if kidney function and metabolic changes do not improve with supportive care, hemodialysis may be indicated. Medications are appropriate for kidney dysfunction. Document strict I/O's. Repeat serum metabolic profile tomorrow AM. (2) Acidosis: AGMA. AG 18. Ethylene glycol and methyl alcohol levels pending. Lactic acid normal. Kidney dysfunction certainly contributing. Repeat labs tomorrow AM. It may be reasonable to consider alternative agent to propofol for sedation if clinical condition does not start to improve. (3) Acetaminophen overdose: Management per poison control. Fomepizole and N-acetylcysteine are being provided. LFTs reassuring. History of Present Illness Reason for Consultation: leroy, overdose, metabolic acidosis Requesting Physician: Judith Ralph MD Attending Physician: Judith Ralph MD History of Present Illness Mr. Tray Gilliam is a 55 year-old male with asthma and chronic pain syndrome treated with acetaminophen. He was transported from assisted to the ER at [facility] yesterday after being found unresponsive in his assisted cell around 7:30 AM. Records indicate nausea and vomiting overnight. Staff reported concern for toxic ingestion (though not paraphernalia or bottles were found). Narcan was administered at the assisted with only brief improvement. Ketamine, homemade alcohol (fermented fruits and plants), and Suboxone are illicitly circulated at the assisted. Jail staff does not believe that patient would have had any automotive fluids or alcohol containing solutions otherwise. On arrival, a diffuse tremor followed by tonic-clonic seizure activity. Tray was intubated in the ER for airway protection and remains ventilator support in the ICU this evening. He remains sedated. Evaluation was notable for AG metabolic acidosis without lactic acidosis and elevated APAP level at 443. No osmolar gap. Ethylene glycol and methyl alcohol levels are pending. Dr. Montes De Oca requested nephrology consultation for progressive kidney dysfunction and persistent AGMA. Poison control center provided recommendations for fomepizole and N-acetylcysteine. Allergies Allergy/AdvReac Type Severity Reaction Status Date / Time Sulfa (Sulfonamide Allergy Unknown Verified 08/27/25 10:59 Antibiotics) Home Medications Medication Instructions Recorded Confirmed Type albuterol sulfate 90 mcg/actuation 1 inh inhalation TID PRN Shortness 08/27/25 08/27/25 History aerosol inhaler Of Breath Patient History Medical History Chronic pain syndrome Asthma Family History Other Family history non-contributory Social History Smoking Status: Unknown if ever smoked Hx Alcohol Use: No (Rafita LAZARO) Hx Substance Use: No (unknown: intubated) Preferred Language: Armenian Extrusion Line Operator Required: No Beliefs That Will Affect Care: None Current Living Situation: Other Current Living Situation Comment: Rafita LAZARO Feels Safe at Home: Yes Review of Systems 2 Review of Systems: Unobtainable due to cognitive status Physical Exam 2 Constitutional: well developed and + mechanically ventilated; no acute distress Eyes: + anicteric sclerae ENMT: ETT Neck: trachea midline and + thick neck Respiratory: symmetric chest movement Auscultation: lungs clear to auscultation bilaterally Cardiovascular: Rate/Rhythm: regular rate and regular rhythm Heart Sounds: normal S1 and normal S2 Extremities: no edema Skin: normal turgor; no jaundice Genitourinary: Perez draining clear yellow urine Results & Data Vital Signs (Past 12 Hours) Vital Signs Temp Pulse Resp BP Pulse Ox O2 Del Method FiO2 08/28/25 16:00 40 08/28/25 15:57 102 H 18 99 25 08/28/25 15:00 37.1 C 94 H 19 99 08/28/25 14:42 37.1 C 101 H 21 99 08/28/25 14:42 130/91 08/28/25 14:42 130/91 08/28/25 14:42 130/91 08/28/25 14:42 130/91 08/28/25 14:42 130/91 08/28/25 14:01 118/80 08/28/25 14:01 118/80 08/28/25 14:01 118/80 08/28/25 14:01 118/80 08/28/25 14:01 118/80 08/28/25 14:00 37.0 C 93 H 16 100 08/28/25 13:00 37.1 C 100 H 16 96 08/28/25 13:00 97/68 L 08/28/25 13:00 97/68 L 08/28/25 13:00 97/68 L 08/28/25 13:00 97/68 L 08/28/25 13:00 97/68 L 08/28/25 12:30 37.2 C 103 H 16 96 08/28/25 12:00 37.3 C 103 H 16 97 08/28/25 12:00 100/68 08/28/25 12:00 25 08/28/25 11:35 Mechanical Vent 25 08/28/25 11:30 37.3 C 102 H 16 98 08/28/25 11:25 106 H 18 95 08/28/25 11:00 37.3 C 105 H 19 99 08/28/25 11:00 115/77 08/28/25 10:30 37.4 C 103 H 23 97 08/28/25 10:00 37.6 C H 109 H 19 97 08/28/25 10:00 94/65 L 08/28/25 09:30 37.6 C H 111 H 19 97 08/28/25 09:00 37.7 C H 112 H 18 96 08/28/25 09:00 110/77 08/28/25 08:57 37.7 C H 110 H 27 H 96 08/28/25 08:30 37.9 C H 114 H 18 96 08/28/25 08:00 117 H 08/28/25 08:00 38.0 C H 117 H 18 96 08/28/25 08:00 90/67 L 08/28/25 08:00 25 08/28/25 07:30 128/86 08/28/25 07:30 37.8 C H 117 H 19 95 08/28/25 07:28 116 H 20 96 25 08/28/25 07:00 37.9 C H 115 H 18 97 08/28/25 07:00 102/67 Laboratory Results Laboratory Results - last 24 hr 08/27/25 08/27/25 08/27/25 18:51 20:51 23:11 WBC RBC Hgb Hct MCV MCH MCHC RDW Std Deviation RDW Coeff of Brett Plt Count MPV Immature Gran % (Auto) Neut % (Auto) Lymph % (Auto) [place] % (Auto) Eos % (Auto) Baso % (Auto) Neut # (Auto) Lymph # (Auto) [place] # (Auto) Eos # (Auto) Baso # (Auto) Immature Gran # (Auto) PT 13.1 H INR 1.3 H VBG pH 7.33 L VBG pCO2 35 L VBG pO2 63 VBG HCO3 19 VBG O2 Saturation 93.9 VBG Base Excess -6.6 Sodium 136 Potassium 4.0 Chloride 100 Carbon Dioxide 19 L Anion Gap 17 H BUN 24 H Creatinine 1.34 Est Cr Clr Drug Dosing 71.2 eGFR 62.56 BUN/Creatinine Ratio 17.9 Glucose 131 H POC Glucose Osmolality 297 Lactate 2.5 H* 1.3 Uric Acid Calcium 8.9 Phosphorus Magnesium Total Bilirubin 0.5 0.4 Direct Bilirubin 0.1 AST 36 34 ALT 39 38 Alkaline Phosphatase 66 69 Total Creatine Kinase Total Protein 6.8 7.1 Albumin 3.8 4.0 Globulin 3.0 Albumin/Globulin Ratio 1.3 Acetaminophen 147 H 08/28/25 08/28/25 08/28/25 00:08 04:30 08:54 WBC 21.64 H D RBC 4.76 Hgb 14.5 Hct 40.8 L MCV 85.7 MCH 30.5 MCHC 35.5 RDW Std Deviation 41.6 RDW Coeff of Brett 13.2 Plt Count 253 MPV 10.4 Immature Gran % (Auto) 0.5 Neut % (Auto) 88.0 Lymph % (Auto) 5.8 [place] % (Auto) 5.6 Eos % (Auto) 0.0 Baso % (Auto) 0.1 Neut # (Auto) 19.03 H Lymph # (Auto) 1.25 [place] # (Auto) 1.22 H Eos # (Auto) 0.00 Baso # (Auto) 0.03 Immature Gran # (Auto) 0.11 PT INR VBG pH 7.25 L VBG pCO2 48 VBG pO2 25 VBG HCO3 21 VBG O2 Saturation < 60.0 VBG Base Excess -6.4 Sodium 135 L 136 Potassium 3.7 3.7 Chloride 98 97 L Carbon Dioxide 21 20 L Anion Gap 16 H 19 H BUN 25 H 29 H Creatinine 1.76 H D 2.11 H D Est Cr Clr Drug Dosing 54.2 45.2 eGFR 45.10 36.28 BUN/Creatinine Ratio 14.2 13.7 Glucose 136 H 128 H POC Glucose Osmolality 294 Lactate Uric Acid Calcium 8.4 L 8.1 L Phosphorus 5.1 H Magnesium 2.2 Total Bilirubin 0.5 0.4 Direct Bilirubin 0.1 AST 34 28 ALT 40 34 Alkaline Phosphatase 72 64 Total Creatine Kinase Total Protein 7.3 6.5 Albumin 4.1 3.7 Globulin 3.2 Albumin/Globulin Ratio 1.3 Acetaminophen 61 H 08/28/25 08/28/25 08/28/25 11:47 12:33 14:47 WBC RBC Hgb Hct MCV MCH MCHC RDW Std Deviation RDW Coeff of Brett Plt Count MPV Immature Gran % (Auto) Neut % (Auto) Lymph % (Auto) [place] % (Auto) Eos % (Auto) Baso % (Auto) Neut # (Auto) Lymph # (Auto) [place] # (Auto) Eos # (Auto) Baso # (Auto) Immature Gran # (Auto) PT 13.6 H INR 1.3 H VBG pH VBG pCO2 VBG pO2 VBG HCO3 VBG O2 Saturation VBG Base Excess Sodium 135 L Potassium 3.9 Chloride 96 L Carbon Dioxide 21 Anion Gap 18 H BUN 30 H Creatinine 3.06 H D Est Cr Clr Drug Dosing 30.8 eGFR 23.22 BUN/Creatinine Ratio 9.8 L Glucose 120 H POC Glucose 133 H Osmolality 290 Lactate 0.9 Uric Acid 5.3 Calcium 7.7 L Phosphorus Magnesium Total Bilirubin 0.3 Direct Bilirubin AST 20 ALT 30 Alkaline Phosphatase 56 Total Creatine Kinase 28 L Total Protein 6.0 Albumin 3.7 Globulin 2.3 L Albumin/Globulin Ratio 1.6 Acetaminophen 42 H PG Care Time/CCT Total # of Minutes Spent Total Time Spent with Patient: Total time spent is greater than 50% in coordination of care (as documented) at patient's floor/unit and/or counseling patient: Coding Level of Care Code 92428 IN/OBS CONSULT LVL 4,60M Diagnoses LEROY (acute kidney injury) N17.9 Acidosis E87.20 Acetaminophen overdose T39.1X1A
--- NOTE | 2025-08-28 21:56 | Ultrasound Report ---
Exam(s): US RENAL EXAM: US Retroperitoneal Limited, Renal CLINICAL HISTORY: Reason for exam: LEROY. OTHER: Other Notes: Rt Kidney: 11.2 x 5.3 x 5.5 cm, no masses or lesions seen Lt Kidney: 11.5 x 5.8 x 5.7 cm, no masses or lesions seen Bladder: appears WNL, slightly distended, foly seen, bilateral jets not visualized TECHNIQUE: Real-time limited ultrasound of the retroperitoneum with image documentation. COMPARISON: No relevant prior studies available. FINDINGS: Right kidney: Right kidney measures 11.2 cm. No hydronephrosis. Normal cortical thickness. Left kidney: Left kidney measures 11.5 cm. No hydronephrosis. Normal cortical thickness. Bladder: Perez catheter within the bladder. IMPRESSION: No acute findings in the kidneys. Electronically signed by: Lucian Mtz MD 08/28/25 21:55 PM
[2025-08-29] MEDS ORDERED: STAT IV/IM STA ×2 (01:28→23:23)
[2025-08-29] MEDS ORDERED: AcetylCYSTEINE IV 21 HR REGIMEN (>40KG) IV STA ×2 (01:28→23:23)
[2025-08-29 03:27] LABS: Base Excess VBG -1.5 mEq/L; HCO3 VBG 23 mmol/L; Oxygen Saturation VBG 84.5 %; PCO2 VBG 37 mmHg (38-50); PO2 VBG 49 mmHg; pH VBG 7.40 (7.36-7.41)
[2025-08-29 03:33] LABS: Hematocrit (blood only) 34.6 % (42.0-52.0); Hemoglobin 12.3 g/dl (14.0-18.0); Immature Granulocytes # (auto) 0.05 K/uL (0.01-0.20); Immature Granulocytes % (auto) 0.3 %; Mean Corpuscular Hemoglobin 30.5 pg (25.0-34.0); Mean Corpuscular Volume 85.9 fL (80.0-100.0); Platelet Count 180 K/uL (130-400); RDW Standard Deviation 42.1 fL (36.4-46.3); Red Blood Count 4.03 M/uL (4.70-6.10); White Blood Count 14.41 K/ul (4.8-10.8)
[2025-08-29 03:49] LABS: Alanine Aminotransferase 24.0 U/L (7-52); Albumin Level 3.1 gm/dl (3.4-5.0); Alkaline Phosphatase 53.0 U/L (34-104); Anion Gap 13.0 (3-11); Bilirubin,Total 0.3 mg/dl (0.2-1.0); Blood Urea Nitrogen 30.0 mg/dl (6-23); Calcium 7.3 mg/dl (8.6-10.3); Carbon Dioxide 22.0 mmol/L (21-32); Chloride 99.0 mmol/L (98-107); Creatinine Clr Calc Pharmacy 32.5 ml/min; Glucose 117.0 mg/dl (70-99(Fasting)); Magnesium 2.1 mg/dl (1.7-2.4); Potassium 3.4 mmol/L (3.5-5.1); Sodium 134.0 mmol/L (136-145); Total Protein 5.5 gm/dl (6.0-8.3)
[2025-08-29] MEDS: POTASSIUM CHLORIDE / WTR 10 MEQ/100 ML PLCT IV SCH (04:21)
[2025-08-29] MEDS: CALCIUM GLUCONATE 1,000 MG/60 ML BAG IV STA (04:21)
[2025-08-29] MEDS ORDERED: STAT IV Infusion **Titration per Protocol STA (06:12)
[2025-08-29] MEDS: FUROSEMIDE INJ 20 MG/2 ML VIAL IV ONE (06:27)
[2025-08-29] MEDS: dexMEDEtomidine 200 MCG/50 ML BAG IV SCH (06:28)
--- NOTE | 2025-08-29 08:22 | Nephrology Progress Note ---
Date of Service August 29, 2025 Assessment & Plan (1) LEROY (acute kidney injury): Plan: * Non-oliguric LEROY. Volume status and electrolyte balance remain acceptable * Renal US negative for hydronephrosis. Perez catheter in place draining clear yellow urine * Urinalysis positive for blood related to Perez catheter. Urinalysis was negative for protein. Urine microscopy negative for cellular casts. * Kidney function has been stable over the last 24 hours. Continue supportive therapy. Monitor daily BMP, UO (2) Acidosis: Plan: * Patient admitted with possible toxic ingestion and high anion gap metabolic acidosis. There was no serum osmolar gap. Clinically doubt methanol or ethylene glycol intoxication * Methanol and ethylene glycol levels are pending * Fomepizole administration as per poison control [employer] consultant (3) Acetaminophen overdose: Plan: * Management per poison control. N-acetylcysteine is being provided. LFTs remain within normal limits Admission and Anticipated Discharge Date Admission Date: August 27, 2025 Subjective Mr. Gilliam was evaluated in the ICU this morning. He remains sedated and mechanically ventilated. Review of Systems Review of Systems: Unobtainable due to endotracheal tube Physical Exam Constitutional: Appears critically ill, receiving sedation and mechanical ventilation. Eyes: PERRL, conjunctivae normal, anicteric sclerae ENMT: Orotracheal intubation Neck: trachea midline, no thyromegaly Respiratory: Coarse of breath sounds bilaterally Cardiovascular: RRR, no murmur, no edema Gastrointestinal (Abdomen): Inspection/Auscultation: abdomen normal to inspection Percussion/Palpation: abdomen soft No bowel sounds appreciated Skin: no rashes, warm and dry Results & Data Vital Signs (Past 12 Hours) Vital Signs Temp Pulse Resp BP Pulse Ox O2 Del Method FiO2 08/29/25 07:45 94 H 18 94 08/29/25 05:30 37.4 C 109 H 18 94 Mechanical Vent 08/29/25 05:28 18 25 08/29/25 05:00 37.2 C 92 H 18 131/87 97 Mechanical Vent 08/29/25 05:00 37.4 C 18 08/29/25 04:38 37.3 C 92 H 18 124/77 96 Mechanical Vent 25 08/29/25 04:00 25 08/29/25 03:00 37.3 C 97 H 18 113/67 97 Mechanical Vent 08/29/25 02:59 94 H 18 98 25 08/29/25 02:01 37.3 C 95 H 20 114/74 98 Mechanical Vent 25 08/29/25 01:00 93 H 18 106/67 97 Mechanical Vent 08/29/25 00:00 94 H 18 107/66 97 Mechanical Vent 08/29/25 00:00 25 08/29/25 00:00 92 H 08/28/25 23:21 94 H 21 97 25 08/28/25 23:00 96 H 18 102/64 96 Mechanical Vent 25 08/28/25 23:00 37.4 C 98 H 18 102/64 96 Mechanical Vent 25 08/28/25 22:49 37.4 C 100 H 18 106/82 96 Mechanical Vent 25 08/28/25 22:30 37.4 C 100 H 18 94/68 L 96 Mechanical Vent 08/28/25 22:00 37.5 C 93 H 18 94/68 L 96 Mechanical Vent 08/28/25 21:01 37.4 C 98 H 18 130/77 98 Mechanical Vent Laboratory Results Laboratory Results - last 24 hr 08/28/25 08/28/25 08/28/25 08:54 11:47 12:33 WBC RBC Hgb Hct MCV MCH MCHC RDW Std Deviation RDW Coeff of Brett Plt Count MPV Immature Gran % (Auto) Neut % (Auto) Lymph % (Auto) [place] % (Auto) Eos % (Auto) Baso % (Auto) Neut # (Auto) Lymph # (Auto) [place] # (Auto) Eos # (Auto) Baso # (Auto) Immature Gran # (Auto) PT 13.6 H INR 1.3 H VBG pH VBG pCO2 VBG pO2 VBG HCO3 VBG O2 Saturation VBG Base Excess Sodium Potassium Chloride Carbon Dioxide Anion Gap BUN Creatinine Est Cr Clr Drug Dosing eGFR BUN/Creatinine Ratio Glucose POC Glucose 133 H Osmolality Lactate 0.9 Uric Acid 5.3 Calcium Phosphorus Magnesium Total Bilirubin Direct Bilirubin AST ALT Alkaline Phosphatase Total Creatine Kinase 28 L Total Protein Albumin Globulin Albumin/Globulin Ratio Acetaminophen 61 H 08/28/25 08/28/25 08/28/25 14:47 17:53 21:22 WBC RBC Hgb Hct MCV MCH MCHC RDW Std Deviation RDW Coeff of Brett Plt Count MPV Immature Gran % (Auto) Neut % (Auto) Lymph % (Auto) [place] % (Auto) Eos % (Auto) Baso % (Auto) Neut # (Auto) Lymph # (Auto) [place] # (Auto) Eos # (Auto) Baso # (Auto) Immature Gran # (Auto) PT INR VBG pH VBG pCO2 VBG pO2 VBG HCO3 VBG O2 Saturation VBG Base Excess Sodium 135 L Potassium 3.9 Chloride 96 L Carbon Dioxide 21 Anion Gap 18 H BUN 30 H Creatinine 3.06 H D Est Cr Clr Drug Dosing 30.8 eGFR 23.22 BUN/Creatinine Ratio 9.8 L Glucose 120 H POC Glucose 120 H 118 H Osmolality 290 Lactate Uric Acid Calcium 7.7 L Phosphorus Magnesium Total Bilirubin 0.3 Direct Bilirubin AST 20 ALT 30 Alkaline Phosphatase 56 Total Creatine Kinase Total Protein 6.0 Albumin 3.7 Globulin 2.3 L Albumin/Globulin Ratio 1.6 Acetaminophen 42 H 08/29/25 03:22 WBC 14.41 H RBC 4.03 L Hgb 12.3 L Hct 34.6 L MCV 85.9 MCH 30.5 MCHC 35.5 RDW Std Deviation 42.1 RDW Coeff of Brett 13.4 Plt Count 180 MPV 10.1 Immature Gran % (Auto) 0.3 Neut % (Auto) 84.2 Lymph % (Auto) 10.1 [place] % (Auto) 4.9 Eos % (Auto) 0.1 Baso % (Auto) 0.4 Neut # (Auto) 12.12 H Lymph # (Auto) 1.45 [place] # (Auto) 0.71 H Eos # (Auto) 0.02 Baso # (Auto) 0.06 Immature Gran # (Auto) 0.05 PT INR VBG pH 7.40 VBG pCO2 37 L VBG pO2 49 VBG HCO3 23 VBG O2 Saturation 84.5 VBG Base Excess -1.5 Sodium 134 L Potassium 3.4 L Chloride 99 Carbon Dioxide 22 Anion Gap 13 H BUN 30 H Creatinine 2.90 H Est Cr Clr Drug Dosing 32.5 eGFR 24.77 BUN/Creatinine Ratio 10.3 Glucose 117 H POC Glucose Osmolality Lactate Uric Acid Calcium 7.3 L Phosphorus 4.7 Magnesium 2.1 Total Bilirubin 0.3 Direct Bilirubin 0.1 AST 16 ALT 24 Alkaline Phosphatase 53 Total Creatine Kinase Total Protein 5.5 L Albumin 3.1 L Globulin Albumin/Globulin Ratio Acetaminophen 17 PG Care Time/CCT Total # of Minutes Spent Total Time Spent with Patient: 50 minutes provided to review progress notes, laboratory and toxicology test results, examine patient, discuss POC with ICU attending, order am laboratory testing and update medical record Coding Level of Care Code 72473 SUB INP/OBS CARE 50MIN Diagnoses LEROY (acute kidney injury) N17.9 Acidosis E87.20 Acetaminophen overdose T39.1X1A
[2025-08-29] MEDS ORDERED: Nursing to Pharmacy Communication SCH ×2 (09:30→10:30)
[2025-08-29] MEDS: FOMEPIZOLE 1,500 MG in SODIUM CHLORIDE 0.9% 100 ML IV SCH (10:07)
--- NOTE | 2025-08-29 11:06 | Critical Care Progress Note ---
Date of Service August 29, 2025 Assessment & Plan (1) Acetaminophen overdose: (2) AMS (altered mental status): (3) Metabolic acidosis: (4) Seizure-like activity: (5) LEROY (acute kidney injury): Plan Patient is a 55-year-old incarcerated male who was brought in by EMS today for altered mental status. The patient had been having nausea and vomiting overnight. Was found unresponsive in bed this morning. In the emergency department the patient was significantly somnolent. CT imaging of the head was noncontributory except for a contusion appreciated on the posterior scalp. Labs showed metabolic acidosis. The patient was significantly somnolent. Toxicology showed an elevated acetaminophen level at 443. Ethanol level was low. Salicylates were low. Poison control was notified. The patient received fomepizole and acetylcysteine. He had an episode of seizure-like activity and I witnessed 1 as well when I evaluated him in the ER. Was intubated with RSI and size 8 ET tube successfully for airway protection. Transferred to the medical ICU. Patient remained on mechanical ventilation on 08/28/2025. He was in LEROY. IV fluids were increased. Urine output improved and LEROY also improved. Nephrology saw him and recommended continuing current therapy. Poison control following along. The patient continued on acetylcysteine. Tylenol levels continue to trend down. Anion gap is closing. The patient was successfully extubated to nasal cannula morning of 08/29/2025. Reason Critically Ill: Tylenol overdose Altered mental status Seizure like activity Loss of airway protective reflexes Metabolic acidosis LEROY Neuro: Altered mental status. Intubated for airway protection 08/27/25, extubated 08/29/2025 Seizure-like activity. EEG negative. Ethylene glycol and methanol levels are pending, UDS negative so far. Received fomepizole. Getting additional fomepizole per poison control recommendations today. Cardiac: Sinus rhythm. No elevation in troponin. Blood pressure acceptable. Not in shock. Respiratory: Intubated for airway protection 08/27/2025 with size 8 ET tube. Extubated successfully to nasal cannula today 08/29/2025. Nasal cannula. Saturating well. GI: LFTs not elevated. INR 1.3. Dilated bowel loops on imaging, added docusate, senna and MiraLAX. Did not tolerate tube feeds on the ventilator due to high output from OG. NG tube is now in place. Keep to low intermittent suction for now. Acetaminophen overdose, levels are significantly elevated, trending down. On acetylcysteine. Poison control on board. Repeat level at 6 PM. Will continue acetylcysteine until level is undetectable. RENAL/LYTES: Metabolic acidosis. Anion gap is present. Osmolar gap not present. Was 4 on admission. LEROY is improving. Good urine output. Stopping IV fluids. Received a dose of Lasix with adequate urine output this morning. Concern for overdose, possibly methanol. Perez catheter in place. Monitor output. Nephrology evaluated the patient, they agree with management, no indication for immediate dialysis. : Perez catheter in place. Monitor strict I's and O's. Increased RBCs on UA. ENDO: Blood glucose acceptable at this time. Monitor with every 6 labs. HEME: No significant leukocytosis or anemia. Repeat with daily labs. ID: No evidence of infection at this time. No indication for antibiotics. Feeding: NPO, NG tube in place. Keep to low intermittent suction for now. Once patient is more appropriate speech should see him for swallow eval. Fluids: none Analgesia: None Activity: Bedrest, head of bed elevated Thromboprophylaxis: Place SCDs Ulcer prophylaxis: None Glycemic control: Monitor blood glucose every 6, no indication for insulin at this time Bowels: Docusate senna and MiraLAX Indwelling catheters: Perez catheter, peripheral IVs, NG tube Antibiotics: None Plan: Patient will be admitted to the ICU. Was successfully extubated today to nasal cannula. NG tube is in place. Off all drips at this time except for acetylcysteine. Poison control is following along. I will repeat acetaminophen level tonight at 6 PM. If Tylenol level is undetectable then we can stop the acetylcysteine otherwise we will continue it overnight. Getting additional fomepizole today. LEROY is improving. Urine output is good. Can likely be downgraded tomorrow. I have personally spent 55 minutes of critical care time in the direct management of this patient. This is a life/limb threatening event. This includes time spent evaluating patient, direct bedside care, chart review, placing orders, interpretation of diagnostic studies, discussion with consultants, patient, and family members, as well as other required patient management activities. This time is exclusive of all separately billable procedures, and teaching time and separate from and in addition to any other critical care service time. Admission and Anticipated Discharge Date Admission Date: August 27, 2025 Subjective Past 24-hour events: Patient remained on mechanical ventilation yesterday. Acetylcysteine was continued due to elevated acetaminophen levels. Poison control is following. They wanted additional fomepizole today and to continue the acetylcysteine as serum levels are continuing to be detected. Patient was in LEROY however he had good urine output and renal function is improving today. Nephrology was consulted, did not recommend any change in therapy I do not see an indication for dialysis at this time. IV fluids were stopped this morning and patient received a dose of Lasix with good urine output. Precedex was initiated and propofol weaned this morning. Rounding: Opens eyes when you speak to him. Not following commands. Cuff leak is present. Lungs are clear to auscultation. Only requiring 25% FiO2 with saturations in the upper 90s. Tries to reach for tube when sedation is lowered. After sedation was lowered the patient was placed on SBT. Pulling good tidal volumes. Cuff leak is present. RSV is low, no episodes of apnea witnessed. Nasogastric tube was placed. Patient was successfully extubated to nasal cannula. Intake: 4987 mL Output: 2860 mL Net: + 2127 mL Mechanical ventilation: Volume AC, tidal volume 450, respiratory rate 18, PEEP 5, FiO2 25% Feeding: N.p.o. IV infusions: None Indwelling catheters: Perez, nasogastric tube, peripheral IV Laboratory: CBC: WBC 14, hemoglobin 12.3, platelet 180 Chemistry: Sodium 134, potassium 3.4, chloride 99, bicarb 22, anion gap 13, BUN 30, creatinine 2.90 (trending down), glucose 117, calcium 7.3, phosphorus 4.7, magnesium 2.1, normal LFTs, Tylenol level 9 ABG: VBG with 7.40 pH Review of Systems Review of Systems: Not able to be obtained. Physical Exam Physical Exam: Physical examination: General: Off sedation, wakes up but is not following commands. Opens eyes spontaneously. Moving all extremities. HEENT: Normocephalic, atraumatic. No contusions appreciated. Sclera are nonicteric. No JVD appreciated. Pupils are midline. Skin: Warm and dry. Multiple tattoos. No significant rashes or bruising appreciated. Cardiovascular: Heart is a regular rate and rhythm, no murmurs appreciated on my exam. No significant lower extremity edema. Lungs: Lungs are clear, no wheezing. Tolerated pressure support without evidence of apnea. On 25% FiO2. Extubated today to nasal cannula. Abdomen: Nondistended, nontender to palpation. No masses appreciated. Musculoskeletal: Normal muscle mass and tone. No gross joint deformity abnormalities. No effusions appreciated. Neurologic: Sedated with propofol. Minimally responsive. Results & Data Results & Data Vital Signs (Past 12 Hours) Vital Signs Temp Pulse Resp BP Pulse Ox O2 Del Method FiO2 08/29/25 10:00 37.8 C H 77 17 99/57 L 97 08/29/25 09:45 80 14 97 25 08/29/25 09:00 37.7 C H 83 18 87/52 L 96 08/29/25 08:00 37.8 C H 89 18 83/63 L 95 08/29/25 08:00 25 08/29/25 08:00 98 H 08/29/25 07:45 94 H 18 94 25 08/29/25 07:00 37.5 C 94 H 16 110/68 94 08/29/25 05:30 37.4 C 109 H 18 94 Mechanical Vent 25 08/29/25 05:28 18 25 08/29/25 05:00 37.2 C 92 H 18 131/87 97 Mechanical Vent 25 08/29/25 05:00 37.4 C 18 08/29/25 04:38 37.3 C 92 H 18 124/77 96 Mechanical Vent 25 08/29/25 04:00 25 08/29/25 03:00 37.3 C 97 H 18 113/67 97 Mechanical Vent 25 08/29/25 02:59 94 H 18 98 25 08/29/25 02:01 37.3 C 95 H 20 114/74 98 Mechanical Vent 25 08/29/25 01:00 93 H 18 106/67 97 Mechanical Vent 25 08/29/25 00:00 94 H 18 107/66 97 Mechanical Vent 25 08/29/25 00:00 25 08/29/25 00:00 92 H 08/28/25 23:21 94 H 21 97 25 08/28/25 23:00 96 H 18 102/64 96 Mechanical Vent 25 08/28/25 23:00 37.4 C 98 H 18 102/64 96 Mechanical Vent 25 Coding Level of Care Code 86497 CRITICAL CARE 1ST 30-74M Diagnoses Acetaminophen overdose T39.1X1A AMS (altered mental status) R41.82 Metabolic acidosis E87.20 Seizure-like activity R56.9 LEROY (acute kidney injury) N17.9
--- NOTE | 2025-08-29 11:30 | XRay Report ---
KUB CLINICAL HISTORY: NG placement COMPARISON STUDY: KUB August 28, 2025. FINDINGS: The tip of the nasogastric tube is within the body of the stomach. Visualized bowel gas pat tern is unremarkable. IMPRESSION: Tip of nasogastric tube within the body of the stomach. ACT 112: Negative or not required by law. Electronically signed by: Gregg Cali M.D. 08/29/2025 11:28 AM
[2025-08-29] MEDS: DOCUSATE SODIUM SYRUP 100 MG/10 ML UDC PO SCH (13:15)
[2025-08-29] MEDS: POLYETHYLENE (MIRALAX) 17 GM PACK PO SCH (13:15)
[2025-08-29] MEDS: SENNOSIDES 8.8 MG/5 ML UDC PO SCH (13:15)
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
[2025-08-29] MEDS ORDERED: ALBUTEROL HFA 8 GM INHALER INH PRN (16:44)
[2025-08-29 18:33] LABS: Base Excess VBG -1.5 mEq/L; HCO3 VBG 23 mmol/L; Oxygen Saturation VBG 84.0 %; PCO2 VBG 37 mmHg (38-50); PO2 VBG 49 mmHg; pH VBG 7.40 (7.36-7.41)
[2025-08-29 18:55] LABS: Alanine Aminotransferase 22.0 U/L (7-52); Albumin Globulin Ratio 1.2 (0.9-2); Albumin Level 3.4 gm/dl (3.4-5.0); Alkaline Phosphatase 59.0 U/L (34-104); Anion Gap 11.0 (3-11); Bilirubin,Total 0.6 mg/dl (0.2-1.0); Blood Urea Nitrogen 27.0 mg/dl (6-23); Calcium 8.4 mg/dl (8.6-10.3); Carbon Dioxide 22.0 mmol/L (21-32); Chloride 103.0 mmol/L (98-107); Creatinine Clr Calc Pharmacy 43.7 ml/min; Globulin 2.8 gm/dl (2.5-4.0); Glucose 105.0 mg/dl (70-99(Fasting)); Potassium 3.8 mmol/L (3.5-5.1); Sodium 136.0 mmol/L (136-145); Total Protein 6.2 gm/dl (6.0-8.3)
[2025-08-29 19:24] LABS: INR 1.1 (0.9-1.1); Prothrombin Time 11.9 Seconds (9.0-12.0)
[2025-08-29] MEDS: ONDANSETRON INJ 2 MG/ML 2 ML VIAL IV STA (19:45)
[2025-08-29] MEDS: LINEZOLID 600 MG/300 ML BAG IV SCH (20:43)
[2025-08-29] MEDS: HEPARIN SOD 5,000 UNIT/0.5 ML VIAL SQ SCH (20:45)
[2025-08-30] MEDS: PROCHLORPERAZINE 10 MG in SYRINGE 8 ML IV ONE ×2 (03:40→22:19)
[2025-08-30 04:26] LABS: Hematocrit (blood only) 30.8 % (42.0-52.0); Hemoglobin 10.8 g/dl (14.0-18.0); Immature Granulocytes # (auto) 0.04 K/uL (0.01-0.20); Immature Granulocytes % (auto) 0.3 %; Mean Corpuscular Hemoglobin 30.7 pg (25.0-34.0); Mean Corpuscular Volume 87.5 fL (80.0-100.0); Platelet Count 174 K/uL (130-400); RDW Standard Deviation 42.8 fL (36.4-46.3); Red Blood Count 3.52 M/uL (4.70-6.10); White Blood Count 11.82 K/ul (4.8-10.8)
[2025-08-30 04:46] LABS: Alanine Aminotransferase 18.0 U/L (7-52); Albumin Level 3.1 gm/dl (3.4-5.0); Alkaline Phosphatase 55.0 U/L (34-104); Anion Gap 9.0 (3-11); Bilirubin,Total 0.6 mg/dl (0.2-1.0); Blood Urea Nitrogen 20.0 mg/dl (6-23); Calcium 8.2 mg/dl (8.6-10.3); Carbon Dioxide 24.0 mmol/L (21-32); Chloride 105.0 mmol/L (98-107); Creatinine Clr Calc Pharmacy 63.3 ml/min; Glucose 102.0 mg/dl (70-99(Fasting)); Magnesium 2.2 mg/dl (1.7-2.4); Potassium 3.4 mmol/L (3.5-5.1); Sodium 138.0 mmol/L (136-145); Total Protein 5.9 gm/dl (6.0-8.3)
[2025-08-30 04:52] LABS: INR 1.1 (0.9-1.1); Prothrombin Time 12.0 Seconds (9.0-12.0)
--- NOTE | 2025-08-30 07:48 | XRay Report ---
EXAM: XR chest 1V portable CLINICAL HISTORY: assess for PNA TECHNIQUE: An X-ray image of the chest was obtained in AP projection. COMPARISON: 08/27/2025. FINDINGS: Pulmonary Parenchyma: Prominent bronchovascular markings are seen bilaterally, but mainly in the right lower zone. There is no evidence of consolidation, collapse, or focal opacities. No pulmonary nodules are identified. There is no evidence of pleural effusion or pleural thickening. Heart and Mediastinum: The heart size and shape are normal. There is no mediastinal widening or masses. No hilar or mediastinal lymphadenopathy is seen. Bony Thorax: The bony thorax appears intact without fractures or deformities. Soft Tissues: The soft tissues overlying the chest wall are unremarkable. IMPRESSION: 1. Prominent bronchovascular markings are seen bilaterally, but mainly in the right lower zone, which could represent a sign of bronchiolitis (mildly progressive). 2. However, another differential diagnosis of pulmonary congestion is possible; thus, clinical correlation is advised. 3. There is no evidence of consolidation, collapse, or focal opacities. No pulmonary nodules are identified. 4. Interval removal of the ETT. Electronically signed by Samy Monterroso 08-30-2025 07:47 AM
--- NOTE | 2025-08-30 09:00 | Nephrology Progress Note ---
Date of Service August 30, 2025 Assessment & Plan (1) LEROY (acute kidney injury): Plan: * Non-oliguric LEROY. Patient is now in the recovery phase. Cr is 1.49 this am. Baseline 1.1 - 1.3. Volume status and electrolyte balance remain acceptable * Renal US negative for hydronephrosis. Perez catheter in place draining clear yellow urine * Urinalysis positive for blood related to Perez catheter. Urinalysis was negative for protein. Urine microscopy negative for cellular casts. * Patient is nearing baseline kidney function. AG has closed. Ethylene glycol level < 10. Will sign off. Please call if further nephrology evaluation is needed. (2) Acidosis: Plan: * Patient admitted with possible toxic ingestion and high anion gap metabolic acidosis. There was no serum osmolar gap. Clinically doubt methanol or ethylene glycol intoxication * 08/27/25 ethylene glycol <10 (3) Acetaminophen overdose: Plan: * Management per poison control. N-acetylcysteine was provided. LFTs remain within normal limits Admission and Anticipated Discharge Date Admission Date: August 27, 2025 Subjective Mr. Martinez was evaluated in his hospital room this morning. He was awake, breathing comfortably on RA but nonconverstant Review of Systems Review of Systems: Unobtainable due to mental health condition Physical Exam Eyes: PERRL, conjunctivae normal, anicteric sclerae Neck: trachea midline, no thyromegaly Cardiovascular: RRR, no murmur, no edema Gastrointestinal (Abdomen): Inspection/Auscultation: abdomen normal to inspect ion Percussion/Palpation: abdomen soft Skin: no rashes, warm and dry Results & Data Vital Signs (Past 12 Hours) Vital Signs Temp Pulse Pulse Resp BP Pulse Ox O2 Del Method 08/30/25 03:46 36.7 C 104 H 22 116/45 L 94 Room Air 08/30/25 00:12 36.9 C 97 H 14 130/72 94 Room Air 08/30/25 00:10 93 H Laboratory Results Laboratory Results - last 24 hr 08/27/25 08/29/25 08/29/25 12:43 09:53 11:29 WBC RBC Hgb Hct MCV MCH MCHC RDW Std Deviation RDW Coeff of Brett Plt Count MPV Immature Gran % (Auto) Neut % (Auto) Lymph % (Auto) Vigo % (Auto) Eos % (Auto) Baso % (Auto) Neut # (Auto) Lymph # (Auto) Vigo # (Auto) Eos # (Auto) Baso # (Auto) Immature Gran # (Auto) PT INR VBG pH VBG pCO2 VBG pO2 VBG HCO3 VBG O2 Saturation VBG Base Excess Sodium Potassium Chloride Carbon Dioxide Anion Gap BUN Creatinine Est Cr Clr Drug Dosing eGFR BUN/Creatinine Ratio Glucose POC Glucose 104 H Calcium Phosphorus Magnesium Total Bilirubin Direct Bilirubin AST ALT Alkaline Phosphatase Total Protein Albumin Globulin Albumin/Globulin Ratio Procalcitonin Acetaminophen 9 L Ethylene Glycol <10.0 08/29/25 08/30/25 18:11 03:57 WBC 11.82 H RBC 3.52 L Hgb 10.8 L Hct 30.8 L MCV 87.5 MCH 30.7 MCHC 35.1 RDW Std Deviation 42.8 RDW Coeff of Brett 13.4 Plt Count 174 MPV 10.5 Immature Gran % (Auto) 0.3 Neut % (Auto) 82.6 Lymph % (Auto) 9.1 Vigo % (Auto) 6.9 Eos % (Auto) 0.8 Baso % (Auto) 0.3 Neut # (Auto) 9.74 H Lymph # (Auto) 1.08 L Vigo # (Auto) 0.82 H Eos # (Auto) 0.10 Baso # (Auto) 0.04 Immature Gran # (Auto) 0.04 PT 11.9 12.0 INR 1.1 1.1 VBG pH 7.40 VBG pCO2 37 L VBG pO2 49 VBG HCO3 23 VBG O2 Saturation 84.0 VBG Base Excess -1.5 Sodium 136 138 Potassium 3.8 3.4 L Chloride 103 105 Carbon Dioxide 22 24 Anion Gap 11 9 BUN 27 H 20 Creatinine 2.16 H D 1.49 H D Est Cr Clr Drug Dosing 43.7 63.3 eGFR 35.28 55.08 BUN/Creatinine Ratio 12.5 13.4 Glucose 105 H 102 H POC Glucose Calcium 8.4 L 8.2 L Phosphorus 2.9 D Magnesium 2.2 Total Bilirubin 0.6 0.6 Direct Bilirubin 0.2 AST 15 13 ALT 22 18 Alkaline Phosphatase 59 55 Total Protein 6.2 5.9 L Albumin 3.4 3.1 L Globulin 2.8 Albumin/Globulin Ratio 1.2 Procalcitonin 4.03 H Acetaminophen 5 L < 3 L Ethylene Glycol PG Care Time/CCT Total # of Minutes Spent Total Time Spent with Patient: 50 minutes provided to review progress notes, laboratory and toxicology test results, examine patient and update medical record Coding Level of Care Code 36402 SUB INP/OBS CARE 350MIN Diagnoses LEROY (acute kidney injury) N17.9 Acidosis E87.20 Acetaminophen overdose T39.1X1A
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
[2025-08-31 06:23] LABS: Hematocrit (blood only) 33.6 % (42.0-52.0); Hemoglobin 11.7 g/dl (14.0-18.0); Mean Corpuscular Hemoglobin 30.5 pg (25.0-34.0); Mean Corpuscular Volume 87.5 fL (80.0-100.0); Platelet Count 194 K/uL (130-400); RDW Standard Deviation 41.7 fL (36.4-46.3); Red Blood Count 3.84 M/uL (4.70-6.10); White Blood Count 10.34 K/ul (4.8-10.8)
[2025-08-31 06:47] LABS: Alanine Aminotransferase 17.0 U/L (7-52); Albumin Globulin Ratio 1.2 (0.9-2); Albumin Level 3.5 gm/dl (3.4-5.0); Alkaline Phosphatase 54.0 U/L (34-104); Anion Gap 6.0 (3-11); Bilirubin,Total 0.5 mg/dl (0.2-1.0); Blood Urea Nitrogen 10.0 mg/dl (6-23); Calcium 8.7 mg/dl (8.6-10.3); Carbon Dioxide 27.0 mmol/L (21-32); Chloride 105.0 mmol/L (98-107); Creatinine Clr Calc Pharmacy 112.4 ml/min; Globulin 2.9 gm/dl (2.5-4.0); Glucose 108.0 mg/dl (70-99(Fasting)); Potassium 3.4 mmol/L (3.5-5.1); Sodium 138.0 mmol/L (136-145); Total Protein 6.4 gm/dl (6.0-8.3)
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
[2025-08-31] MEDS: POTASSIUM CHLORIDE CRTAB 20 MEQ TABCR PO STA (19:54)
[2025-09-01 07:07] LABS: Hematocrit (blood only) 32.4 % (42.0-52.0); Hemoglobin 11.6 g/dl (14.0-18.0); Immature Granulocytes # (auto) 0.14 K/uL (0.01-0.20); Immature Granulocytes % (auto) 1.6 %; Mean Corpuscular Hemoglobin 30.4 pg (25.0-34.0); Mean Corpuscular Volume 84.8 fL (80.0-100.0); Platelet Count 213 K/uL (130-400); RDW Standard Deviation 39.3 fL (36.4-46.3); Red Blood Count 3.82 M/uL (4.70-6.10); White Blood Count 8.89 K/ul (4.8-10.8)
[2025-09-01 07:30] LABS: Alanine Aminotransferase 17.0 U/L (7-52); Albumin Globulin Ratio 1.1 (0.9-2); Albumin Level 3.6 gm/dl (3.4-5.0); Alkaline Phosphatase 53.0 U/L (34-104); Anion Gap 8.0 (3-11); Bilirubin,Total 0.5 mg/dl (0.2-1.0); Blood Urea Nitrogen 8.0 mg/dl (6-23); Calcium 8.7 mg/dl (8.6-10.3); Carbon Dioxide 27.0 mmol/L (21-32); Chloride 102.0 mmol/L (98-107); Creatinine Clr Calc Pharmacy 147.0 ml/min; Globulin 3.2 gm/dl (2.5-4.0); Glucose 102.0 mg/dl (70-99(Fasting)); Magnesium 1.9 mg/dl (1.7-2.4); Potassium 3.3 mmol/L (3.5-5.1); Sodium 137.0 mmol/L (136-145); Total Protein 6.8 gm/dl (6.0-8.3)
[2025-09-01] MEDS: POTASSIUM CHLORIDE / WTR 10 MEQ/100 ML PLCT IV SCH (08:36)
[2025-09-01 11:51] VITALS: BP 124/77; PULSE 90; RESP 16; TEMP 98.8; O2SAT 98
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
[2025-09-02 13:27] LABS: Methyl Alcohol Comment WHOLE BLOOD; Methyl Alcohol Level NONE DETECTED (NONE DETECTED)
== END 2025-09-01 15:16 | DRG 92 ==
LOC: SUATTDRO → ED 08:16 → 1E 12:00 → SUATTDRO 12:00 → 1E 13:19 → 2S 08-30 13:10